=== PATIENT | male | born 1955 | race African-American/Black ===

== ENCOUNTER 2017-06-02 09:41 | Emergency (ER) | payer OTHER ==
[2017-06-02] MEDS ORDERED: RX INFO: IV CONTRAST WAS GIVEN 1 EACH MISC MISCELLANE PRN (10:16)
[2017-06-02] MEDS ORDERED: SODIUM CHLORIDE 0.9% 1,000 ML IV STA (10:16)
[2017-06-02] MEDS ORDERED: ONDANSETRON 4 MG/2 ML VIAL IVP STA (10:16)
[2017-06-02] MEDS ORDERED: HYDROmorphone 1 MG/ML 1 ML SYRINGE IVP STA (10:16)
--- NOTE | 2017-06-02 10:19 | ED ---
Abdominal Pain HPI - General Chief Complaint: Abdominal Pain Stated Complaint: abdominal pain Time Seen by Provider: 06/02/17 10:06 Source: patient, RN notes reviewed, old records reviewed Mode of arrival: ambulatory Limitations: no limitations - History of Present Illness Initial Comments: Physical is a 61-year-old male presenting to the emergency Department chief complaint of 3 days of diffuse abdominal pain. Patient reports the pain seems to be like a "hunger pain". Patient reports that his pain seems to be relieved whenever he eats a small meal but then returns 30 minutes afterward. Patient states that he has a history of a defibrillator, hypertension, enlarged prostate , history of appendectomy. Patient states that he's had no recent fever or chills. Reports he feels nauseated but denies any vomiting. Patient states he also had a couple episodes of diarrhea. Patient states he's had no urinary symptoms or blood in his urine. Patient reports no fever or chills. Patient states the pain seems to radiate around his entire abdomen. It does cause him to be short of breath. He denies any specific chest pain - Related Data Home Medications Medication Instructions Recorded Confirmed Aspirin EC [Ecotrin Low Dose] 81 mg PO DAILY 06/02/17 06/04/17 Atorvastatin Calcium [Lipitor] 10 mg PO HS 06/02/17 06/04/17 Carvedilol [Coreg] 25 mg PO BID@0730,2100 06/02/17 06/04/17 Losartan Potassium 100 mg PO DAILY 06/02/17 06/04/17 Multivitamins, Thera [Multivitamin 1 tab PO DAILY 06/02/17 06/04/17 (formulary)] Previous Rx's Medication Instructions Recorded Omeprazole [PriLOSEC] 40 mg PO DAILY #30 capsule. 06/02/17 Sucralfate [Carafate] 1 gm PO BID #30 tablet 06/02/17 Allergies Allergy/AdvReac Type Severity Reaction Status Date / Time No Known Allergies Allergy Verified 06/03/17 23:35 Review of Systems ROS Statement: Those systems with pertinent positive or pertinent negative responses have been documented in the HPI. ROS Other: All systems not noted in ROS Statement are negative. Past Medical History Past Medical History: Heart Failure History of Any Multi-Drug Resistant Organisms: None Reported Past Surgical History: Appendectomy, Pacemaker Additional Past Surgical History / Comment(s): knee surg Past Psychological History: No Psychological Hx Reported Smoking Status: Never smoker Past Alcohol Use History: None Reported Past Drug Use History: None Reported General Exam - General Exam Comments Initial Comments: Is a 61-year-old male. Patient does to be in some mild discomfort. Limitations: no limitations General appearance: alert, in no apparent distress Head exam: Present: atraumatic, normocephalic, normal inspection Eye exam: Present: normal appearance, PERRL, EOMI. Absent: scleral icterus, conjunctival injection, periorbital swelling ENT exam: Present: normal exam Neck exam: Present: normal inspection. Absent: tenderness, meningismus, lymphadenopathy Respiratory exam: Present: normal lung sounds bilaterally. Absent: respiratory distress, wheezes, rales, rhonchi, stridor Cardiovascular Exam: Present: regular rate, normal rhythm, normal heart sounds. Absent: systolic murmur, diastolic murmur, rubs, gallop, clicks GI/Abdominal exam: Present: soft, tenderness (She is abdominal tenderness.), normal bowel sounds. Absent: distended, guarding, rebound, rigid Extremities exam: Present: normal inspection, full ROM, normal capillary refill. Absent: tenderness, pedal edema, joint swelling, calf tenderness Back exam: Present: normal inspection Neurological exam: Present: alert, oriented X3, CN II-XII intact Psychiatric exam: Present: normal affect, normal mood Skin exam: Present: warm, dry, intact, normal color. Absent: rash Course Vital Signs 06/02/17 06/02/17 06/02/17 09:45 11:39 13:10 Temperature 98.0 F 98.0 F 97.4 F L Pulse Rate 70 62 57 L Respiratory 16 18 18 Rate Blood Pressure 135/82 134/92 131/97 O2 Sat by Pulse 95 95 93 L Oximetry Medical Decision Making - Medical Decision Making Physical is a 61-year-old male presenting to the emergency Department chief complaint of 3 days of diffuse abdominal pain. Patient reports the pain seems to be like a "hunger pain". Patient reports that his pain seems to be relieved whenever he eats a small meal but then returns 30 minutes afterward. Patient states that he has a history of a defibrillator, hypertension, enlarged prostate , history of appendectomy. Patient states that he's had no recent fever or chills. Reports he feels nauseated but denies any vomiting. Patient is given IV fluids, lab work obtained. As noted patient has a low potassium level II.9. This was replaced by 40 mEq by mouth. Discussed this with likely related to a couple of his EKG changes. Patient reports that he doesn't have any chest pain or any other abnormalities. Patient CT abdomen and pelvis was reviewed, negative for any significant acute process.CT had hepatomegaly. Also some small hernias, multiple cysts within the kidney. Discussed the patient's pain seemed to get better whenever he eatsit sound like a duodenal ulcer. Patient was reevaluated and is feeling better at this time. Patient will be discharged with Pepcid, Carafate. Discussed close follow-up with primary care physician in rechecking his potassium level. Patient agrees to treatment plan will comply. Return parameters were discussed. - Lab Data Result diagrams: 06/02/17 10:30 06/02/17 10:30 Lab Results 06/02/17 06/02/17 06/02/17 Range/Units 09:50 10:30 10:30 WBC 7.6 (3.8-10.6) k/uL RBC 4.59 (4.30-5.90) m/uL Hgb 13.5 (13.0-17.5) gm/dL Hct 40.9 (39.0-53.0) % MCV 89.2 (80.0-100.0) fL MCH 29.4 (25.0-35.0) pg MCHC 32.9 (31.0-37.0) g/dL RDW 15.0 (11.5-15.5) % Plt Count 282 (150-450) k/uL Neutrophils % 53 % Lymphocytes % 28 % Monocytes % 11 % Eosinophils % 4 % Basophils % 2 % Neutrophils # 4.0 (1.3-7.7) k/uL Lymphocytes # 2.1 (1.0-4.8) k/uL Monocytes # 0.8 (0-1.0) k/uL Eosinophils # 0.3 (0-0.7) k/uL Basophils # 0.1 (0-0.2) k/uL PT (9.0-12.0) sec INR (<1.2) APTT (22.0-30.0) sec Sodium 141 (137-145) mmol/L Potassium 2.9 L* (3.5-5.1) mmol/L Chloride 100 (98-107) mmol/L Carbon Dioxide 31 H (22-30) mmol/L Anion Gap 10 mmol/L BUN 14 (9-20) mg/dL Creatinine 1.10 (0.66-1.25) mg/dL Est GFR (MDRD) Af Amer >60 (>60 ml/min/1.73 sqM) Est GFR (MDRD) Non-Af >60 (>60 ml/min/1.73 sqM) Glucose 105 H (74-99) mg/dL Calcium 9.5 (8.4-10.2) mg/dL Total Bilirubin 0.7 (0.2-1.3) mg/dL AST 70 H (17-59) U/L ALT 147 H (21-72) U/L Alkaline Phosphatase 77 (38-126) U/L Troponin I (0.000-0.034) ng/mL Total Protein 7.2 (6.3-8.2) g/dL Albumin 4.2 (3.5-5.0) g/dL Amylase 43 (30-110) U/L Lipase 179 (23-300) U/L Urine Color Yellow Urine Appearance Clear (Clear) Urine pH 7.0 (5.0-8.0) Ur Specific [place]ogg[place] 1.007 (1.001-1.035) Urine Protein Negative (Negative) Urine Glucose (UA) Negative (Negative) Urine Ketones Negative (Negative) Urine Blood Negative (Negative) Urine Nitrite Negative (Negative) Urine Bilirubin Negative (Negative) Urine Urobilinogen <2.0 (<2.0) mg/dL Ur Leukocyte Esterase Negative (Negative) 06/02/17 06/02/17 Range/Units 10:30 10:30 WBC (3.8-10.6) k/uL RBC (4.30-5.90) m/uL Hgb (13.0-17.5) gm/dL Hct (39.0-53.0) % MCV (80.0-100.0) fL MCH (25.0-35.0) pg MCHC (31.0-37.0) g/dL RDW (11.5-15.5) % Plt Count (150-450) k/uL Neutrophils % % Lymphocytes % % Monocytes % % Eosinophils % % Basophils % % Neutrophils # (1.3-7.7) k/uL Lymphocytes # (1.0-4.8) k/uL Monocytes # (0-1.0) k/uL Eosinophils # (0-0.7) k/uL Basophils # (0-0.2) k/uL PT 11.0 (9.0-12.0) sec INR 1.1 (<1.2) APTT 26.7 (22.0-30.0) sec Sodium (137-145) mmol/L Potassium (3.5-5.1) mmol/L Chloride (98-107) mmol/L Carbon Dioxide (22-30) mmol/L Anion Gap mmol/L BUN (9-20) mg/dL Creatinine (0.66-1.25) mg/dL Est GFR (MDRD) Af Amer (>60 ml/min/1.73 sqM) Est GFR (MDRD) Non-Af (>60 ml/min/1.73 sqM) Glucose (74-99) mg/dL Calcium (8.4-10.2) mg/dL Total Bilirubin (0.2-1.3) mg/dL AST (17-59) U/L ALT (21-72) U/L Alkaline Phosphatase (38-126) U/L Troponin I 0.017 (0.000-0.034) ng/mL Total Protein (6.3-8.2) g/dL Albumin (3.5-5.0) g/dL Amylase (30-110) U/L Lipase (23-300) U/L Urine Color Urine Appearance (Clear) Urine pH (5.0-8.0) Ur Specific [place] (1.001-1.035) Urine Protein (Negative) Urine Glucose (UA) (Negative) Urine Ketones (Negative) Urine Blood (Negative) Urine Nitrite (Negative) Urine Bilirubin (Negative) Urine Urobilinogen (<2.0) mg/dL Ur Leukocyte Esterase (Negative) 06/02/17 12:48EKG shows normal sinus rhythm. Left ventricular ectopy with QRS widening. Cannot rule out previous inferior infarct. T wave abnormality, consider lateral ischemia. Abnormal EKG. Ventricular rate 63 bpm. OH interval 202 ms. QRS duration 118 ms. QT QTc is 466/476 ms. No evidence of ST elevation. No evidence of a chill or ventricular arrhythmias. - Radiology Data Radiology results: report reviewed CT shows evidence of hepatomegaly. Out of steatosis there may be a small umbilical hernia containing fat. Mainly just a small focus of fluid signal is present likely an additional small hernia. 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 Multiple cortical cysts within the kidneys. Cardiomegaly. Diverticulosis. This is read by Rhett Johnson. Disposition Clinical Impression: Duodenal ulcer, Hypokalemia Disposition: HOME SELF-CARE Condition: Good Instructions: Peptic Ulcer (ED), Hypokalemia (ED) Additional Instructions: Patient denies to follow-up with GI specialist and a primary care provider. Take the medications as prescribed. Return to the emergency department if any alarming signs or symptoms occur. Prescriptions: Omeprazole [PriLOSEC] 40 mg PO DAILY #30 capsule.dr Sucralfate [Carafate] 1 gm PO BID #30 tablet Referrals: Nonstaff,Physician [Primary Care Provider] - 1-2 days Tatyana Jewell MD [STAFF PHYSICIAN] - 1-2 days Stephania Pierce MD [STAFF PHYSICIAN] - 1-2 days Time of Disposition: 12:50
[2017-06-02 10:50] LABS: Basophils # (A) 0.1 k/uL (0-0.2); Basophils % (A) 2 %; CH 30.5; CHCM 34.5; Eosinophils # (A) 0.3 k/uL (0-0.7); Eosinophils % (A) 4 %; HCT 40.9 % (39.0-53.0); HDW 2.73; HGB 13.5 gm/dL (13.0-17.5); Luc # (Auto) 0.22; Luc % (Auto) 3; Lymphocytes # (A) 2.1 k/uL (1.0-4.8); Lymphocytes % (A) 28 %; MCH 29.4 pg (25.0-35.0); MCHC 32.9 g/dL (31.0-37.0); MCV 89.2 fL (80.0-100.0); Mean Platelet Volume 7.8; Monocytes # (A) 0.8 k/uL (0-1.0); Monocytes % (A) 11 %; Neutrophils % (A) 53 %; RBC 4.59 m/uL (4.30-5.90); WBC 7.6 k/uL (3.8-10.6); WBC (Perox) 7.54
[2017-06-02 10:51] LABS: Appearance,Urine Clear (Clear); Bilirubin,Urine Negative (Negative); Glucose,Urine (UA) Negative (Negative); Ketones,Urine Negative (Negative); Leukocyte Esterase,Urine Negative (Negative); Nitrite,Urine Negative (Negative); Protein,Urine Negative (Negative); Specific Gravity,Urine 1.007 (1.001-1.035); UA Billing (MACRO vs. MICRO) CHEM; Urobilinogen,Urine <2.0 mg/dL (<2.0)
[2017-06-02 10:57] LABS: ALT 147 U/L (21-72); AST 70 U/L (17-59); Alkaline Phosphatase 77 U/L (38-126); Amylase 43 U/L (30-110); Anion Gap 10 mmol/L; Blood Urea Nitrogen 14 mg/dL (9-20); Calcium 9.5 mg/dL (8.4-10.2); Carbon Dioxide 31 mmol/L (22-30); Chloride 100 mmol/L (98-107); Glucose 105 mg/dL (74-99); Non-African American GFR(MDRD) >60 (>60 ml/min/1.73 sqM); Sodium 141 mmol/L (137-145); Total Bilirubin 0.7 mg/dL (0.2-1.3); Total Protein 7.2 g/dL (6.3-8.2)
[2017-06-02 10:58] LABS: INR 1.1 (<1.2); Partial Thromboplastin Time 26.7 sec (22.0-30.0)
[2017-06-02 11:03] LABS: Potassium 2.9 mmol/L (3.5-5.1)
[2017-06-02] MEDS ORDERED: POTASSIUM CHLORIDE ER 20 MEQ TAB.ER PO STA (11:08)
[2017-06-02 11:40] VITALS: RESP 18
--- NOTE | 2017-06-02 12:10 | CT ---
EXAMINATION TYPE: CT abdomen pelvis w con DATE OF EXAM: 06/02/2017 COMPARISON: NONE HISTORY: Generalized abdominal pain CT DLP: 1658 mGycm Automated exposure control for dose reduction was used. TECHNIQUE: Helical acquisition of images from the lung bases through the pelvis have been completed. CONTRAST: Performed without Oral Contrast and with IV Contrast, patient injected with 100 mL of Omnipaque 300. FINDINGS: The heart is enlarged. Lead present within the right ventricle. LUNG BASES: No significant abnormality is appreciated. AORTA: No significant abnormality is appreciated. LIVER/GB: Liver shows low attenuation likely due to fatty infiltration, liver is enlarged. Small subc entimeter cystic foci are present anteriorly. Gallbladder is normal. PANCREAS: No significant abnormality is seen. SPLEEN: No significant abnormality is seen. ADRENALS: No significant abnormality is seen. KIDNEYS: Multiple cortical cysts are present bilaterally, the largest at the lower pole of the left k idney measures approximately 9.6 cm. REPRODUCTIVE ORGANS: The prostate is enlarged BOWEL: Wall thickening in the rectosigmoid colon may be due to muscular hypertrophy or lack of disten tion, difficult to exclude a mucosal lesion, there is some minimal diverticular change. Small umbilic al hernia contains fat. Small soft tissue density present immediately adjacent to the umbilical herni a to the right of midline is indeterminate and measures 2 cm. FREE AIR: No Free Air visible. ASCITES: None visible. PELVIC ADENOPATHY: None visualized. RETROPERITONEAL ADENOPATHY: No Retroperitoneal Adenopathy visible. URINARY BLADDER: Inferior impression on the bladder due to the large prostate. OSSEOUS STRUCTURES: Degenerative disc change at L5-S1 with vacuum phenomenon. IMPRESSION: HEPATOMEGALY, HEPATIC STEATOSIS. THERE MAY IS SMALL UMBILICAL HERNIA CONTAINING FAT, IMMEDIATELY EMILIANO CENT A SMALL FOCUS OF FLUID SIGNAL IS PRESENT LIKELY AN ADDITIONAL SMALL HERNIA , THIS COULD BE REPRE SENTATIVE OF SOME LOCAL FAT NECROSIS . MULTIPLE CORTICAL CYSTS WITHIN THE KIDNEYS. CARDIOMEGALY. DIVE RTICULOSIS.
[2017-06-02 13:11] VITALS: BP 131/97; PULSE 57; TEMP 97.4
== END 2017-06-02 13:16 | disposition home or self-care (01) ==
LOC: EC 09:41
DX: K26.9 Duodenal ulcer, unspecified as acute or chronic, without hemorrhage or perforation (principal); E87.6 Hypokalemia; K57.90 Diverticulosis of intestine, part unspecified, without perforation or abscess without bleeding; N28.1 Cyst of kidney, acquired; I51.7 Cardiomegaly; R94.31 Abnormal electrocardiogram [ECG] [EKG]; R16.0 Hepatomegaly, not elsewhere classified; R19.7 Diarrhea, unspecified; R11.0 Nausea; R06.02 Shortness of breath; I11.0 Hypertensive heart disease with heart failure; I50.9 Heart failure, unspecified; Z79.82 Long term (current) use of aspirin; Z79.899 Other long term (current) drug therapy; Z90.49 Acquired absence of other specified parts of digestive tract
CPT/HCPCS: 36415; 93005; 80053; 82150; 83690; 84484; 85025; 85610; 85730; 81003; 74177; 99285; 96374; 96375; 96361 ×3; J2405; J1170; Q9967

== ENCOUNTER 2017-06-03 23:24 | Inpatient (IN) | payer OTHER ==
[2017-06-04] MEDS ORDERED: HYDROmorphone 1 MG/ML 1 ML SYRINGE IVP STA (00:12)
[2017-06-04] MEDS ORDERED: ONDANSETRON 4 MG/2 ML VIAL IVP STA (00:12)
[2017-06-04 00:55] LABS: Basophils # (A) 0.1 k/uL (0-0.2); Basophils % (A) 1 %; CH 30.3; Eosinophils # (A) 0.3 k/uL (0-0.7); Eosinophils % (A) 4 %; HCT 40.4 % (39.0-53.0); HDW 2.72; HGB 13.4 gm/dL (13.0-17.5); Luc # (Auto) 0.22; Luc % (Auto) 4; Lymphocytes # (A) 2.2 k/uL (1.0-4.8); Lymphocytes % (A) 35 %; MCH 29.7 pg (25.0-35.0); MCHC 33.1 g/dL (31.0-37.0); MCV 89.6 fL (80.0-100.0); Mean Platelet Volume 7.9; Monocytes # (A) 0.6 k/uL (0-1.0); Monocytes % (A) 9 %; Neutrophils # (A) 3.1 k/uL (1.3-7.7); Neutrophils % (A) 48 %; RBC 4.51 m/uL (4.30-5.90); WBC 6.4 k/uL (3.8-10.6); WBC (Perox) 6.15
[2017-06-04 01:04] LABS: Appearance,Urine Clear (Clear); Bilirubin,Urine Negative (Negative); Glucose,Urine (UA) Negative (Negative); Ketones,Urine Negative (Negative); Leukocyte Esterase,Urine Negative (Negative); Nitrite,Urine Negative (Negative); Protein,Urine Negative (Negative); Specific Gravity,Urine 1.007 (1.001-1.035); UA Billing (MACRO vs. MICRO) CHEM; Urobilinogen,Urine <2.0 mg/dL (<2.0)
[2017-06-04 01:06] LABS: INR 1.1 (<1.2); Partial Thromboplastin Time 23.9 sec (22.0-30.0); Prothrombin Time 10.6 sec (9.0-12.0)
[2017-06-04 01:13] LABS: ALT 266 U/L (21-72); AST 163 U/L (17-59); Alkaline Phosphatase 111 U/L (38-126); Amylase 49 U/L (30-110); Anion Gap 11 mmol/L; Blood Urea Nitrogen 18 mg/dL (9-20); Calcium 9.9 mg/dL (8.4-10.2); Carbon Dioxide 30 mmol/L (22-30); Chloride 102 mmol/L (98-107); Glucose 102 mg/dL (74-99); Non-African American GFR(MDRD) >60 (>60 ml/min/1.73 sqM); Potassium 3.4 mmol/L (3.5-5.1); Sodium 143 mmol/L (137-145); Total Bilirubin 0.6 mg/dL (0.2-1.3); Total Protein 7.4 g/dL (6.3-8.2)
--- NOTE | 2017-06-04 01:20 | XR ---
CXR 2 View INDICATION: abdominal pain COMPARISON: none FINDINGS: Frontal and lateral views of the chest. Examination is limited due to technique. The cardiomediastinal silhouette is enlarged. Hazy opacification of the bilateral mid to lower lung gomez. Mild deviation of the trachea to the right. There is peribronchial cuffing which may be seen in conditions such as bronchitis or interstitial edema. There is increased vascular markings. There is a suggestion of a small right pleural effusion. Possible opacification of the left lower lung field and right lateral mid to lower lung field. There maybe some atelectasis at the lung bases. No evidence for pleural effusions. There is a pacer device over the left chest with a lead. Questionable ovoid density projecting over the right lateral upper abdomen. Please correlate with clinical history. Correlation to more remote prior exams would be helpful. Lateral views are very limited in evaluation. There is suggestion of mild height loss of the mid to lower thoracic spine. Please correlate with point tenderness. IMPRESSION: Enlarged cardiac silhouette with increased vascular markings and possible small right pleural effusion may be seen in the setting of congestive heart failure. Possible opacification of the left lower lung field and right lateral mid to lower lung field, nonspecific and may be related to airspace disease such as with pulmonary edema although infection is not entirely excluded. Continued followup imaging is recommended.
--- NOTE | 2017-06-04 01:29 | XR ---
ADDENDUM - Added by Alphonse Fournier MD on 06/04/2017 1:30 AM (-07:00) Correction: Two frontal views of the abdomen. KUB INDICATION: abdominal pain COMPARISON: Correlation is made to CT abdomen/pelvis dated 06/02/17 FINDINGS: Two frontal vies of the abdomen. Please refer to the accompanying chest radiograph for chest findings. The cardiac silhouette is enlarged. Increased pulmonary vascular markings. Nonobstructive bowel gas pattern. There is an ovoid opacity projecting over the left upper abdomen, nonspecific. Moderate stool burden in the right abdomen. Degenerative changes at L5/S1. IMPRESSION: Nonobstructive bowel gas pattern. CT abdomen/pelvis is recommended if symptoms persist or worsen. Moderate stool burden in the right abdomen.
[2017-06-04 01:33] LABS: Creatine Kinase MB 1.2 ng/mL (0.0-2.4)
--- NOTE | 2017-06-04 01:34 | ED ---
Abdominal Pain HPI <Zeferino Milligan - Last Filed: 06/04/17 01:58> - General Source: patient Mode of arrival: ambulatory Limitations: no limitations <Pamela Plummer - Last Filed: 06/04/17 04:30> - General Chief Complaint: Abdominal Pain Stated Complaint: Stomach Pain-Revisit Time Seen by Provider: 06/03/17 23:54 - History of Present Illness Initial Comments: 61-year-old male patient presents to emergency department today for complaints of generalized abdominal pain. Patient states been going on for the last 4 days. Patient states that he was seen and evaluated here yesterday and was diagnosed with a possible ulcer and given medication for this. Patient states that he did take the medication as directed however the pain is still present and much worse today than yesterday. Patient states that he feels bloated. Describes the pain as a pressure over his abdomen. Patient states he is having significant shortness of breath whenever he tries to lie down. Patient states that he has also had shortness of breath with any type of activity today. The patient denies any chest pain, cough, congestion, nausea, vomiting, constipation , diarrhea, hematuria, dysuria, urinary urgency, urinary frequency, dark, bloody , or black stools. Patient has past medical history significant for congestive heart failure and implanted cardioverter defibrillator. (Pamela Plummer) - Related Data Home Medications Medication Instructions Recorded Confirmed Aspirin EC [Ecotrin Low Dose] 81 mg PO DAILY 06/02/17 06/02/17 Atorvastatin Calcium [Lipitor] 10 mg PO HS 06/02/17 06/02/17 Carvedilol [Coreg] 25 mg PO BID@0730,2100 06/02/17 06/02/17 Losartan Potassium 100 mg PO DAILY 06/02/17 06/02/17 Multivitamins, Thera [Multivitamin 1 tab PO DAILY 06/02/17 06/02/17 (formulary)] Previous Rx's Medication Instructions Recorded Omeprazole [PriLOSEC] 40 mg PO DAILY #30 capsule. 06/02/17 Sucralfate [Carafate] 1 gm PO BID #30 tablet 06/02/17 Allergies Allergy/AdvReac Type Severity Reaction Status Date / Time No Known Allergies Allergy Verified 06/03/17 23:35 Review of Systems ROS Other: All systems not noted in ROS Statement are negative. <Zeferino Milligan - Last Filed: 06/04/17 01:58> ROS Other: All systems not noted in ROS Statement are negative. <Pamela Plummer - Last Filed: 06/04/17 04:30> ROS Statement: Those systems with pertinent positive or pertinent negative responses have been documented in the HPI. Past Medical History Past Medical History: Heart Failure History of Any Multi-Drug Resistant Organisms: None Reported Past Surgical History: Appendectomy, Pacemaker Additional Past Surgical History / Comment(s): knee surg Past Psychological History: No Psychological Hx Reported Smoking Status: Never smoker Past Alcohol Use History: None Reported Past Drug Use History: None Reported <Pamela Plummer - Last Filed: 06/04/17 04:30> General Exam Limitations: no limitations General appearance: alert, in distress (Mild distress) Eye exam: Present: normal appearance, PERRL, EOMI. Absent: scleral icterus, conjunctival injection, periorbital swelling ENT exam: Present: normal exam, normal oropharynx, mucous membranes moist Neck exam: Present: normal inspection. Absent: tenderness, meningismus, lymphadenopathy Respiratory exam: Present: normal lung sounds bilaterally. Absent: respiratory distress, wheezes, rales, rhonchi, stridor Cardiovascular Exam: Present: regular rate, normal rhythm, normal heart sounds. Absent: systolic murmur, diastolic murmur, rubs, gallop, clicks GI/Abdominal exam: Present: soft, distended, tenderness (Patient reports tenderness and seems uncomfortable palpation of all 4 quadrants), normal bowel sounds. Absent: guarding, rebound, rigid Extremities exam: Present: normal inspection, full ROM, normal capillary refill. Absent: tenderness, pedal edema, joint swelling, calf tenderness Back exam: Present: normal inspection Neurological exam: Present: alert, oriented X3, CN II-XII intact Psychiatric exam: Present: normal affect, normal mood Skin exam: Present: warm, dry, intact, normal color. Absent: rash <Pamela Plummer - Last Filed: 06/04/17 04:30> Course <Zeferino Milligan - Last Filed: 06/04/17 01:58> <Pamela Plummer - Last Filed: 06/04/17 04:30> Vital Signs 06/03/17 06/04/17 06/04/17 23:32 01:32 02:47 Temperature 97.7 F 97.1 F L Pulse Rate 89 58 L Pulse Rate [ 70 Pulse Oximetery ] Respiratory 22 16 16 Rate Blood Pressure 142/102 156/94 Blood Pressure 133/95 [Left Arm] O2 Sat by Pulse 94 L 96 97 Oximetry 06/04/17 03:14 Temperature 98 F Pulse Rate 69 Pulse Rate [ Pulse Oximetery ] Respiratory 16 Rate Blood Pressure 128/80 Blood Pressure [Left Arm] O2 Sat by Pulse Oximetry - Reevaluation(s) Reevaluation #1: 06/04/17 01:58 Patient reevaluated by myself, Dr. Milligan. Patient resting comfortably in bed. Minimal tenderness in the epigastric region on exam. Chest x-ray has some concern for mild heart failure. BNP is slightly elevated. Troponin is slightly elevated. EKG unchanged from yesterday. Patient was updated on results and plan. Case was discussed in detail with Dr. Wilson with [facility] who will admit for hospital call. (Zeferino Milligan) Medical Decision Making - Lab Data Result diagrams: 06/04/17 00:33 06/04/17 00:33 <Zeferino Milligan - Last Filed: 06/04/17 01:58> - Lab Data Result diagrams: 06/04/17 00:33 06/04/17 00:33 - Radiology Data Radiology results: report reviewed, image reviewed <Pamela Plummer - Last Filed: 06/04/17 04:30> - Medical Decision Making 61-year-old male patient presented to emergency department today for complaints of generalized abdominal pain and shortness of breath. Lab work was obtained and did show potassium of 3.4 increased from 2.9 yesterday. AST was 163 increased from 70 yesterday, a LT 266 increased from 147 yesterday, troponin 0.037. Chest x-ray was obtained and did show possible CHF changes, enlarged heart. KUB x-ray was obtained and did show right-sided fecal burden over overall nonobstructive bowel gas pattern. EKG was normal sinus rhythm with chronic changes. Patient will be admitted to the hospital for consults to GI and cardiology. Did speak to Dr. Valdez who instructed to repeat troponin before starting heparin. Also ordered IV Protonix, IV Lasix, and Dilaudid for pain control. (Pamela Plummer - Lab Data Lab Results 06/04/17 06/04/17 06/04/17 Range/Units 00:33 00:33 00:33 WBC 6.4 (3.8-10.6) k/uL RBC 4.51 (4.30-5.90) m/uL Hgb 13.4 (13.0-17.5) gm/dL Hct 40.4 (39.0-53.0) % MCV 89.6 (80.0-100.0) fL MCH 29.7 (25.0-35.0) pg MCHC 33.1 (31.0-37.0) g/dL RDW 15.0 (11.5-15.5) % Plt Count 288 (150-450) k/uL Neutrophils % 48 % Lymphocytes % 35 % Monocytes % 9 % Eosinophils % 4 % Basophils % 1 % Neutrophils # 3.1 (1.3-7.7) k/uL Lymphocytes # 2.2 (1.0-4.8) k/uL Monocytes # 0.6 (0-1.0) k/uL Eosinophils # 0.3 (0-0.7) k/uL Basophils # 0.1 (0-0.2) k/uL PT (9.0-12.0) sec INR (<1.2) APTT (22.0-30.0) sec Sodium 143 (137-145) mmol/L Potassium 3.4 L (3.5-5.1) mmol/L Chloride 102 (98-107) mmol/L Carbon Dioxide 30 (22-30) mmol/L Anion Gap 11 mmol/L BUN 18 (9-20) mg/dL Creatinine 1.20 (0.66-1.25) mg/dL Est GFR (MDRD) Af Amer >60 (>60 ml/min/1.73 sqM) Est GFR (MDRD) Non-Af >60 (>60 ml/min/1.73 sqM) Glucose 102 H (74-99) mg/dL Plasma Lactic Acid Ez (0.7-2.0) mmol/L Calcium 9.9 (8.4-10.2) mg/dL Total Bilirubin 0.6 (0.2-1.3) mg/dL AST 163 H (17-59) U/L ALT 266 H (21-72) U/L Alkaline Phosphatase 111 (38-126) U/L Total Creatine Kinase 184 H (55-170) U/L CK-MB (CK-2) 1.2 (0.0-2.4) ng/mL CK-MB (CK-2) Rel Index 0.7 Troponin I 0.037 H* (0.000-0.034) ng/mL NT-Pro-B Natriuret Pep pg/mL Total Protein 7.4 (6.3-8.2) g/dL Albumin 4.4 (3.5-5.0) g/dL Amylase 49 (30-110) U/L Lipase 229 (23-300) U/L Urine Color Urine Appearance (Clear) Urine pH (5.0-8.0) Ur Specific [place] (1.001-1.035) Urine Protein (Negative) Urine Glucose (UA) (Negative) Urine Ketones (Negative) Urine Blood (Negative) Urine Nitrite (Negative) Urine Bilirubin (Negative) Urine Urobilinogen (<2.0) mg/dL Ur Leukocyte Esterase (Negative) 06/04/17 06/04/17 06/04/17 Range/Units 00:33 00:33 00:33 WBC (3.8-10.6) k/uL RBC (4.30-5.90) m/uL Hgb (13.0-17.5) gm/dL Hct (39.0-53.0) % MCV (80.0-100.0) fL MCH (25.0-35.0) pg MCHC (31.0-37.0) g/dL RDW (11.5-15.5) % Plt Count (150-450) k/uL Neutrophils % % Lymphocytes % % Monocytes % % Eosinophils % % Basophils % % Neutrophils # (1.3-7.7) k/uL Lymphocytes # (1.0-4.8) k/uL Monocytes # (0-1.0) k/uL Eosinophils # (0-0.7) k/uL Basophils # (0-0.2) k/uL PT 10.6 (9.0-12.0) sec INR 1.1 (<1.2) APTT 23.9 (22.0-30.0) sec Sodium (137-145) mmol/L Potassium (3.5-5.1) mmol/L Chloride (98-107) mmol/L Carbon Dioxide (22-30) mmol/L Anion Gap mmol/L BUN (9-20) mg/dL Creatinine (0.66-1.25) mg/dL Est GFR (MDRD) Af Amer (>60 ml/min/1.73 sqM) Est GFR (MDRD) Non-Af (>60 ml/min/1.73 sqM) Glucose (74-99) mg/dL Plasma Lactic Acid Ez 1.6 (0.7-2.0) mmol/L Calcium (8.4-10.2) mg/dL Total Bilirubin (0.2-1.3) mg/dL AST (17-59) U/L ALT (21-72) U/L Alkaline Phosphatase (38-126) U/L Total Creatine Kinase (55-170) U/L CK-MB (CK-2) (0.0-2.4) ng/mL CK-MB (CK-2) Rel Index Troponin I (0.000-0.034) ng/mL NT-Pro-B Natriuret Pep pg/mL Total Protein (6.3-8.2) g/dL Albumin (3.5-5.0) g/dL Amylase (30-110) U/L Lipase (23-300) U/L Urine Color Light Yellow Urine Appearance Clear (Clear) Urine pH 8.0 (5.0-8.0) Ur Specific [place] 1.007 (1.001-1.035) Urine Protein Negative (Negative) Urine Glucose (UA) Negative (Negative) Urine Ketones Negative (Negative) Urine Blood Negative (Negative) Urine Nitrite Negative (Negative) Urine Bilirubin Negative (Negative) Urine Urobilinogen <2.0 (<2.0) mg/dL Ur Leukocyte Esterase Negative (Negative) 06/04/17 Range/Units 00:33 WBC (3.8-10.6) k/uL RBC (4.30-5.90) m/uL Hgb (13.0-17.5) gm/dL Hct (39.0-53.0) % MCV (80.0-100.0) fL MCH (25.0-35.0) pg MCHC (31.0-37.0) g/dL RDW (11.5-15.5) % Plt Count (150-450) k/uL Neutrophils % % Lymphocytes % % Monocytes % % Eosinophils % % Basophils % % Neutrophils # (1.3-7.7) k/uL Lymphocytes # (1.0-4.8) k/uL Monocytes # (0-1.0) k/uL Eosinophils # (0-0.7) k/uL Basophils # (0-0.2) k/uL PT (9.0-12.0) sec INR (<1.2) APTT (22.0-30.0) sec Sodium (137-145) mmol/L Potassium (3.5-5.1) mmol/L Chloride (98-107) mmol/L Carbon Dioxide (22-30) mmol/L Anion Gap mmol/L BUN (9-20) mg/dL Creatinine (0.66-1.25) mg/dL Est GFR (MDRD) Af Amer (>60 ml/min/1.73 sqM) Est GFR (MDRD) Non-Af (>60 ml/min/1.73 sqM) Glucose (74-99) mg/dL Plasma Lactic Acid Ez (0.7-2.0) mmol/L Calcium (8.4-10.2) mg/dL Total Bilirubin (0.2-1.3) mg/dL AST (17-59) U/L ALT (21-72) U/L Alkaline Phosphatase (38-126) U/L Total Creatine Kinase (55-170) U/L CK-MB (CK-2) (0.0-2.4) ng/mL CK-MB (CK-2) Rel Index Troponin I (0.000-0.034) ng/mL NT-Pro-B Natriuret Pep 2940 pg/mL Total Protein (6.3-8.2) g/dL Albumin (3.5-5.0) g/dL Amylase (30-110) U/L Lipase (23-300) U/L Urine Color Urine Appearance (Clear) Urine pH (5.0-8.0) Ur Specific [place] (1.001-1.035) Urine Protein (Negative) Urine Glucose (UA) (Negative) Urine Ketones (Negative) Urine Blood (Negative) Urine Nitrite (Negative) Urine Bilirubin (Negative) Urine Urobilinogen (<2.0) mg/dL Ur Leukocyte Esterase (Negative) 06/04/17 04:22 EKG obtained 00 19 reveals sinus rhythm with premature atrial complexes with aberrant conduction, possible left atrial enlargement, left ventricular hypertrophy with QRS widening, ST and T-wave abnormality. Ventricular rate is 83, MD interval 208, QR spiritism 120, QT 426, QTc 500. No evidence of acute ST elevation or depression. (Pamela Plummer) - Radiology Data Two-view x-ray of the chest shows the cardiomediastinal Vale is enlarged. Hazy opacification of the bilateral mid to lower lung gomez. Mild deviation of trachea to the right. There is peribronchial cuffing which may be seen in condition such as bronchitis or interstitial edema. There is increased vascular markings. There is a suggestion of a small right pleural effusion. Possible opacification of the left lower lung field and right lateral mid to lower lung field. There is some atelectasis at the lung bases. No evidence for pleural effusions. There is a pacer device over the left chest with a lead. Questionable ovoid density projecting over the right lateral upper abdomen. Please correlate with clinical history. Correlation to more remote prior exams of be helpful. Lateral views are looked very limited evaluation. There is suggestion of mild height loss of the mid to lower thoracic spine. Please correlate with point tenderness. Impression by Dr. Fournier shows enlarged cardiac silhouette with increased vascular markings and possible small right pleural effusion may be seated in the setting of congestive heart failure. Possible opacification of the left lower lung field in the right mid to lower lung field, nonspecific and may be related to airspace disease such as with pulmonary edema although infection is not entirely excluded. 2 frontal views of the abdomen obtained, nonobstructive bowel gas pattern. There is an ovoid opacity projecting over the left upper abdomen, is nonspecific. Moderate stool burden in the right abdomen. Degenerative changes L5-S1. Impression by Dr. Fournier shows nonobstructive bowel gas pattern. CT abdomen and pelvis is recommended if symptoms persist or worsen. Moderate stool burden in the right abdomen. (Pamela Plummer) Disposition <Zeferino Milligan - Last Filed: 06/04/17 01:58> Decision to Admit Reason: Admit from EC Decision Date: 06/04/17 Decision Time: 02:24 <Pamela Plummer - Last Filed: 06/04/17 04:30> Clinical Impression: Elevated troponin, Abdominal pain, Acute exacerbation of CHF (congestive heart failure), Elevated liver enzymes Disposition: ADMITTED IP TO THIS HOSP Condition: Fair
[2017-06-04 01:51] LABS: Troponin I 0.037 ng/mL (0.000-0.034)
[2017-06-04] MEDS ORDERED: HEPARIN SODIUM,PORCINE 5,000 UNIT/ML 1 ML VIAL IV ONE (02:01)
[2017-06-04] MEDS ORDERED: NITROGLYCERIN SL TABS 0.4 MG TAB SUBLINGUAL PRN (02:01)
[2017-06-04] MEDS ORDERED: HEPARIN SODIUM,PORCINE/D5W PMX 25,000 UNIT in DEXTROSE/WATER 1 500ML.BAG IV SCH (02:15)
[2017-06-04] MEDS ORDERED: FUROSEMIDE 10 MG/ML 4 ML VIAL IV STA (02:21)
[2017-06-04] MEDS ORDERED: ONDANSETRON 4 MG/2 ML VIAL IVP PRN (02:21)
[2017-06-04] MEDS ORDERED: PANTOPRAZOLE 40 MG/10 ML VIAL IVP ONE (02:21)
[2017-06-04 03:04] LABS: Troponin I 0.031 ng/mL (0.000-0.034)
--- NOTE | 2017-06-04 06:47 | P.HPIM ---
History of Present Illness H&P Date: 06/04/17 Chief Complaint: Abdominal pain The patient is pleasant 61 years old -[place] male significant history of coronary artery disease status post inferior AICD device placement presented to emergency room with abdominal pain across his midabdomen sharp he rates it at 6 weeks -10 . For the past week, pain actually improves after food, no similar pain before, he came to the emergency room on the for the same pain , no apparent injury or falls. Review of Systems Constitutional: Patient reports no fever, no chills, no weight changes, no change in appetite Eyes: Patient reports no double vision, no visual changes ENT: Patient reports no rhinorrhea, no post nasal drip, no sore throat Cardiovascular: Patient reports no chest, pain no edema, no palpitations, no syncope, no orthopnea, no paroxysmal nocturnal dyspnea. Respiratory: Patient reports no dyspnea, no cough, no wheeze Gastrointestinal: Patient reports no nausea, no vomiting, no constipation, no diarrhea Genitourinary: Patient reports no dysuria, no urinary frequency, no hematuria. Musculoskeletal: Patient reports no unusual joint pain, no joint swelling or weakness. Patient reports no muscular pain. Psychiatric: Patient reports no changes in mood, no sleeping problems. Patient reports no changes in memory. Endocrine: Patient reports no thirst, no polyuria, no cold intolerance, no heat intolerance. Neurological: Patient reports no unusual paresthesias, no seizures, no paresis , no paralysis, no facila droop, no headache. Heme/Lymphatic: Patient reports no easy bruising, no bleeding tendency, no lymphadenopathy. Allergic/ Immunologic: Patient reports no recent allergic reactions or immunologic history. Skin: Patient reports no rashes or unusual lesions. Past Medical History Past Medical History: Heart Failure Additional Past Medical History / Comment(s): torn ACL-right knee 2006. CAD History of Any Multi-Drug Resistant Organisms: None Reported Past Surgical History: Appendectomy, Pacemaker Additional Past Surgical History / Comment(s): knee surg Past Anesthesia/Blood Transfusion Reactions: No Reported Reaction Type of Cardiac Device: Permanent Pacemaker, AICD Device Placement Date:: March 2016 Past Psychological History: No Psychological Hx Reported Smoking Status: Never smoker Past Alcohol Use History: None Reported Past Drug Use History: None Reported Medications and Allergies Home Medications Medication Instructions Recorded Confirmed Type Aspirin EC [Ecotrin Low Dose] 81 mg PO DAILY 06/02/17 06/02/17 History Atorvastatin Calcium [Lipitor] 10 mg PO HS 06/02/17 06/02/17 History Carvedilol [Coreg] 25 mg PO BID@0730,2100 06/02/17 06/02/17 History Losartan Potassium 100 mg PO DAILY 06/02/17 06/02/17 History Multivitamins, Thera [Multivitamin 1 tab PO DAILY 06/02/17 06/02/17 History (formulary)] Allergies Allergy/AdvReac Type Severity Reaction Status Date / Time No Known Allergies Allergy Verified 06/03/17 23:35 Physical Exam Vitals: Vital Signs Temp Pulse Pulse Resp BP BP Pulse Ox 06/04/17 04:00 70 16 06/04/17 03:14 98 F 69 16 128/80 06/04/17 02:47 97.1 F L 70 16 133/95 97 06/04/17 01:32 58 L 16 156/94 96 06/03/17 23:32 97.7 F 89 22 142/102 94 L Intake and Output 06/03/17 06/03/17 06/04/17 14:59 22:59 06:59 Other: Voiding Method Toilet Weight 110.8 kg Patient Weight 06/04/17 06:59 Weight 110.8 kg - Constitutional General appearance: cooperative, disheveled, severe distress - EENT Eyes: abnormal pupil, PERRLA, fundus normal, no photophobia, no ptosis ENT: no tonsillar exudates Ears: bilateral: normal - Neck Carotids: negative: upstroke bounding Thyroid: bilateral: normal size - Respiratory Respiratory: bilateral: diminished, dullness, rales, rhonchi, negative: CTA, wheezing, prolonged expiration, prolonged inspiration, other - Cardiovascular Rhythm: regular Heart sounds: normal: S1, S2 Abnormal Heart Sounds: S3 Gallop - Gastrointestinal SOME EDEMA General gastrointestinal: distended, normal bowel sounds, no rigid, soft, no tenderness - Integumentary Integumentary: no flushed, normal, no pale, no rash - Neurologic Neurologic: CNII-XII intact, focal deficits - Musculoskeletal Musculoskeletal: gait normal, generalized weakness - Psychiatric Psychiatric: A&O x's 3, appropriate affect Results CBC & Chem 7: 06/04/17 00:33 06/04/17 00:33 Labs: Abnormal Lab Results - Last 24 Hours (Table) 06/04/17 06/04/17 Range/Units 00:33 00:33 Potassium 3.4 L (3.5-5.1) mmol/L Glucose 102 H (74-99) mg/dL AST 163 H (17-59) U/L ALT 266 H (21-72) U/L Total Creatine Kinase 184 H (55-170) U/L Troponin I 0.037 H* (0.000-0.034) ng/mL CT Scan - head: report reviewed Thrombosis Risk Factor Assmnt - Choose All That Apply Other Risk Factors: No Other congenital or acquired thrombophilia - If yes, enter type in comment: No Assessment and Plan (1) Abdominal pain Narrative/Plan: I will place him nothing by mouth, I will start Protonix 80 mg now and then 40 mg daily, GI consultation, pain control with Dilaudid Status: Acute (2) Acute exacerbation of CHF (congestive heart failure) Narrative/Plan: Patient with known carotid artery disease status post AICD we'll continue to monitor EKG, I'll start him on Lasix 40 mg Continue his current Cozaar and carvedilol and hold on aspirin and continue statin and an echocardiogram and consider cardiology consultation, I will correct his electrolytes and replace as needed Status: Acute (3) Elevated liver enzymes Narrative/Plan: Likely backflow from the heart failure Status: Acute (4) Elevated troponin Narrative/Plan: Likely demand ischemia but the patient has coronary artery disease and is dismissed to be monitored and repeated placing him on telemetry and obtaining cardiology consultation Status: Acute (5) Hypokalemia Narrative/Plan: I will replace his potassium Status: Acute
[2017-06-04] MEDS: HYDROmorphone 1 MG/ML 1 ML SYRINGE IVP PRN ×3 (07:44→21:09)
[2017-06-04 09:14] LABS: Glucose,Whole Blood 98 mg/dL (75-99)
--- NOTE | 2017-06-04 09:35 | P.CONS ---
History of Present Illness - Reason for Consult Consult date: 06/04/17 elevated liver enzymes Requesting physician: Seymour Valdez - History of Present Illness 61-year-old gentleman with a past medical history of congestive heart failure, [place], AICD presents with acute abdominal pain 5 days without fever. Pain is generalized across the entire abdomen and described as "it feels like I ate too much with bloatedness". Denies diarrhea, constipation, hematemesis, hematochezia, melena. Minimal nausea. No emesis. Consultation requested for elevated liver enzymes. Evaluated in the ER on 06/02/2017. CT abdomen and pelvis without oral contrast reported the pedal megaly, hepatic steatosis. Diverticulosis. Total bilirubin 0.6-0.7. AST 70-163. ALT 147-266. Alkaline phosphatase 77- 111. Lipase 179-to 29. Amylase 43-49. White count 6.4-7.6. Hemoglobin 13.4- 13.5. Platelet 282-288. INR 1.1. BUN 14-18. Creatinine 1.1. Plasma lactic acid venous 1.6. No history of liver problems or hepatitis. No history of alcohol or intravenous drug abuse. No changes in medications. No history of peptic ulcer disease. No history of EGD. Review of Systems Constitutional: Denies fever, chills, sweats, weight gain, or loss. HEENT: Negative for migraines, blurred vision or loss, earaches, drainage, tinnitus, oral mucosal lesions, dysphagia, or odynophagia. Cardiac: CHF. IN. AICD. Negative for chest pain, arrhythmias, or palpitation. Respiratory: Negative for shortness of breath, hemoptysis, cough, or sputum production. Gastrointestinal: See HPI for pertinent findings. Genitourinary: Negative for hematuria, urgency, frequency, polyuria, dysuria, or penile discharge. Musculoskeletal: Negative for muscle aches, swelling, arthritis, and arthralgias. Neurologic: Negative for stroke or TIA. Endocrine: Negative for thyroid problems. Skin: Negative for rash or itching. Psychiatric: Negative history for depression and anxiety All systems: negative (See HPI) Past Medical History Past Medical History: Heart Failure Additional Past Medical History / Comment(s): torn ACL-right knee 2006. CAD History of Any Multi-Drug Resistant Organisms: None Reported Past Surgical History: Appendectomy, Pacemaker Additional Past Surgical History / Comment(s): knee surg Past Anesthesia/Blood Transfusion Reactions: No Reported Reaction Type of Cardiac Device: Permanent Pacemaker, AICD Device Placement Date:: March 2016 Past Psychological History: No Psychological Hx Reported Smoking Status: Never smoker Past Alcohol Use History: None Reported Past Drug Use History: None Reported Medications and Allergies Home Medications Medication Instructions Recorded Confirmed Type Aspirin EC [Ecotrin Low Dose] 81 mg PO DAILY 06/02/17 06/04/17 History Atorvastatin Calcium [Lipitor] 10 mg PO HS 06/02/17 06/04/17 History Carvedilol [Coreg] 25 mg PO BID@0730,2100 06/02/17 06/04/17 History Losartan Potassium 100 mg PO DAILY 06/02/17 06/04/17 History Multivitamins, Thera [Multivitamin 1 tab PO DAILY 06/02/17 06/04/17 History (formulary)] Allergies Allergy/AdvReac Type Severity Reaction Status Date / Time No Known Allergies Allergy Verified 06/03/17 23:35 Physical Exam Vitals: Vital Signs Temp Pulse Pulse Resp BP BP Pulse Ox 06/04/17 04:00 70 16 06/04/17 03:14 98 F 69 16 128/80 06/04/17 02:47 97.1 F L 70 16 133/95 97 06/04/17 01:32 58 L 16 156/94 96 06/03/17 23:32 97.7 F 89 22 142/102 94 L Intake and Output 06/03/17 06/04/17 06/04/17 22:59 06:59 14:59 Other: Voiding Method Toilet # Voids 1 Weight 110.8 kg General appearance: The patient is alert, oriented, in no acute distress. Somewhat drowsy secondary to recent pain medication administration. HET: Head is normocephalic and atraumatic. Pupils are equal and reactive. Oropharynx is clear without lesions. Neck: Supple without lymphadenopathy. Trachea midline. Heart: S1 S2. Regular rate and rhythm. Lungs: No crackles or wheezes are heard. Abdomen: Soft, diffuse mild tenderness across mid abdomen, nondistended with bowel sounds. No peritoneal signs. No palpable organomegaly or masses. Extremities: Normal skin color and turgor. No cyanosis, rash, ulceration, clubbing, or edema. Radial and pedal pulses are 2/4 bilaterally. Neurological: No focal deficits. Strength and sensation are grossly intact. Results CBC & Chem 7: 06/04/17 00:33 06/04/17 00:33 Labs: Abnormal Lab Results - Last 24 Hours (Table) 06/04/17 06/04/17 Range/Units 00:33 00:33 Potassium 3.4 L (3.5-5.1) mmol/L Glucose 102 H (74-99) mg/dL AST 163 H (17-59) U/L ALT 266 H (21-72) U/L Total Creatine Kinase 184 H (55-170) U/L Troponin I 0.037 H* (0.000-0.034) ng/mL CT scan - abdomen: report reviewed (Dr. Pierce) Assessment and Plan (1) Transaminitis Narrative/Plan: Etiology unclear possible passive venous congestion with history of CHF possible nonalcoholic steatohepatitis possible gallbladder pathology. Status: Acute (2) Abdominal pain Status: Acute (3) Nonalcoholic hepatosteatosis Status: Chronic (4) Hepatomegaly Status: Chronic (5) CHF (congestive heart failure) Narrative/Plan: History of CHF Status: Chronic Plan: 1. Hepatitis panel. 2. Ultrasound abdomen rule out gallbladder pathology. 3. Protonix 40 mg IV daily. 4. EGD contingent on clinical course for evaluation of abdominal pain. Thank you for this kind referral and the opportunity to participate in the care of your patient. This consultation was discussed with Dr. Pierce. The impression and plan of care have been directed as dictated.
[2017-06-04 10:19] LABS: Creatine Kinase MB 1.2 ng/mL (0.0-2.4); Troponin I 0.025 ng/mL (0.000-0.034)
--- NOTE | 2017-06-04 11:53 | US ---
EXAMINATION TYPE: US abdomen limited DATE OF EXAM: 06/04/2017 COMPARISON: NONE CLINICAL HISTORY: elevated liver enzymes. EXAM MEASUREMENTS: Liver Length: 17.0 cm Gallbladder Wall: 0.3 cm CBD: 0.4 cm Right Kidney: 12.4 x 5.7 x 6.9 cm Pancreas: Obscured by bowel gas Liver: Increased attenuation; small cysts seen peripherally 0.9 x 0.7 x 1.1 cm upper margin right lobe and 1.9 x 1.2 x1.6 cm cyst left lobe. Solid hypoechoic lesion mid right lobe measuring 3.1 x 3. 1 cm, Gallbladder: wnl Evidence for sonographic Balir's sign: yes CBD: wnl Right Kidney: 3 cysts seen, upper and lower pole; 2.7 x 2.9 x 3.3 cm, 3.2 x 2.1 x 4.0 cm and 2.8 x 3.1 x 3.2 cm respectively IMPRESSION: 1. Suspicious solid hepatic lesion within segment 8 measuring 3.1 x 3.1 cm superimposed upon a backgr ound of hepatic steatosis. Dynamic enhanced abdominal MRI is recommended for further characterization . 2. Benign appearing hepatic and renal cysts.
--- NOTE | 2017-06-04 12:25 | P.CRDCN ---
History of Present Illness History of present illness: Patient interviewed and examined. Mild hepatojugular reflux no lower extremity edema heart sounds are normal liver enzymes are abnormal he has severe nonischemic current myopathy and is followed at [facility] appropriate medicated I would suggest workup for abnormal liver functions unless they're chronically elevated one may consider holding atorvastatin 10 mg daily although I doubt that this is the reason. One may also consider adding spironolactone if he has not had any hyper kalemia issues in the past. Outpatient follow-up with his cardio just electrophysiology Please see nurse practitioner's full dictation Past Medical History Past Medical History: Heart Failure Additional Past Medical History / Comment(s): torn ACL-right knee 2006. CAD History of Any Multi-Drug Resistant Organisms: None Reported Past Surgical History: Appendectomy, Pacemaker Additional Past Surgical History / Comment(s): knee surg Past Anesthesia/Blood Transfusion Reactions: No Reported Reaction Type of Cardiac Device: Permanent Pacemaker, AICD Device Placement Date:: March 2016 Past Psychological History: No Psychological Hx Reported Smoking Status: Never smoker Past Alcohol Use History: None Reported Past Drug Use History: None Reported Medications and Allergies Home Medications Medication Instructions Recorded Confirmed Type Aspirin EC [Ecotrin Low Dose] 81 mg PO DAILY 06/02/17 06/04/17 History Atorvastatin Calcium [Lipitor] 10 mg PO HS 06/02/17 06/04/17 History Carvedilol [Coreg] 25 mg PO BID@0730,2100 06/02/17 06/04/17 History Losartan Potassium 100 mg PO DAILY 06/02/17 06/04/17 History Multivitamins, Thera [Multivitamin 1 tab PO DAILY 06/02/17 06/04/17 History (formulary)] Allergies Allergy/AdvReac Type Severity Reaction Status Date / Time No Known Allergies Allergy Verified 06/03/17 23:35 Physical Exam Vitals: Vital Signs Temp Pulse Pulse Resp BP BP Pulse Ox 06/04/17 11:52 96.8 F L 71 20 135/90 95 06/04/17 08:00 97.7 F 103 H 20 124/81 93 L 06/04/17 04:00 70 16 06/04/17 03:14 98 F 69 16 128/80 06/04/17 02:47 97.1 F L 70 16 133/95 97 06/04/17 01:32 58 L 16 156/94 96 06/03/17 23:32 97.7 F 89 22 142/102 94 L Intake and Output 06/03/17 06/04/17 06/04/17 22:59 06:59 14:59 Other: Voiding Method Toilet # Voids 1 Weight 110.8 kg Results 06/04/17 00:33 06/04/17 00:33 Cardiac Enzymes 06/04/17 06/04/17 06/04/17 Range/Units 00:33 00:33 02:30 AST 163 H (17-59) U/L CK-MB (CK-2) 1.2 1.0 (0.0-2.4) ng/mL Troponin I 0.037 H* 0.031 (0.000-0.034) ng/mL 06/04/17 Range/Units 09:04 AST (17-59) U/L CK-MB (CK-2) 1.2 (0.0-2.4) ng/mL Troponin I 0.025 (0.000-0.034) ng/mL Coagulation 06/04/17 Range/Units 00:33 PT 10.6 (9.0-12.0) sec APTT 23.9 (22.0-30.0) sec CBC 06/04/17 Range/Units 00:33 WBC 6.4 (3.8-10.6) k/uL RBC 4.51 (4.30-5.90) m/uL Hgb 13.4 (13.0-17.5) gm/dL Hct 40.4 (39.0-53.0) % Plt Count 288 (150-450) k/uL Comprehensive Metabolic Panel 06/04/17 Range/Units 00:33 Sodium 143 (137-145) mmol/L Potassium 3.4 L (3.5-5.1) mmol/L Chloride 102 (98-107) mmol/L Carbon Dioxide 30 (22-30) mmol/L BUN 18 (9-20) mg/dL Creatinine 1.20 (0.66-1.25) mg/dL Glucose 102 H (74-99) mg/dL Calcium 9.9 (8.4-10.2) mg/dL AST 163 H (17-59) U/L ALT 266 H (21-72) U/L Alkaline Phosphatase 111 (38-126) U/L Total Protein 7.4 (6.3-8.2) g/dL Albumin 4.4 (3.5-5.0) g/dL Current Medications Generic Name Dose Route Start Last Admin Trade Name Freq PRN Reason Stop Dose Admin Atorvastatin Calcium 10 mg 06/04/17 21:00 Lipitor PO HS JASON Carvedilol 25 mg 06/04/17 21:00 Coreg PO BID@0730,2100 [facility] Furosemide 40 mg 06/04/17 10:15 Lasix IV Q12HR [facility] Hydromorphone HCl 1 mg 06/04/17 02:21 06/04/17 07:44 Dilaudid IVP 1 mg Q3H PRN Administration Pain Losartan Potassium 100 mg 06/04/17 09:00 Cozaar PO DAILY [facility] Nitroglycerin 0.4 mg 06/04/17 02:01 Nitrostat SUBLINGUAL Q5M PRN Chest Pain Ondansetron HCl 4 mg 06/04/17 02:21 Zofran IVP Q6HR PRN Nausea And Vomiting Pantoprazole Sodium 40 mg 06/04/17 21:00 Protonix IVP BID [facility] Intake and Output 06/03/17 06/04/17 06/04/17 22:59 06:59 14:59 Other: Voiding Method Toilet # Voids 1 Weight 110.8 kg 06/04/17 00:33 06/04/17 00:33
[2017-06-04 12:39] LABS: Hepatitis B Surface Ag Index 0.05
[2017-06-04 12:45] LABS: Hepatitis B Core IgM Index 0.01
[2017-06-04 12:57] LABS: Hepatitis C Virus IgG Ab Negative (Negative); Hepatitis C Virus IgG Index 0.03
[2017-06-04 13:32] VITALS: BMI 35.0
[2017-06-04] MEDS: LOSARTAN 50 MG TAB PO SCH (13:40)
[2017-06-04] MEDS: FUROSEMIDE 10 MG/ML 4 ML VIAL IV SCH ×2 (13:40→21:10)
--- NOTE | 2017-06-04 14:00 | P.CRDCN ---
History of Present Illness Consult date: 06/04/17 Reason for Consult (text): CHF Exacerbation Chief complaint: abdominal pain History of present illness: This is a pleasant 61-year-old -Cong[place]ese gentleman with a history of coronary artery disease with mild-intermediate proximal LAD and intermediate distal RCA disease, nonischemic cardiomyopathy, severe stenosis systolic and diastolic heart failure with an ejection fraction 25%, status post ICD, obstructive sleep apnea, pulmonary hypertension, obesity. Follows with a tank washer out of [place]. He presented to the emergency department twice this week with complaints of abdominal discomfort and distention. Was apparently seen in the emergency department a few days back and was given omeprazole without relief, abdominal pain actually worsened. He presented again last night complains of abdominal discomfort as well as shortness of breath with activity and orthopnea and was admitted with CHF exacerbation, abdominal pain and distention. EKG and admission shows sinus rhythm with diffuse ST-T wave abnormalities and PVCs, similar to EKG obtained from patient' s primary tank washer office. Originally values showed a potassium of 3.4 which has been supplemented, BNP 2940, troponin 0.037, 0.031 and 0.025 and a BUN of 18 with creatinine 1.2. ALT and AST are both elevated, GIs and consult. Upon examination, patient is quite drowsy as he did not sleep well last night and has been receiving pain medications. Most the HPI was obtained from his . He does not appear to be in any acute distress. Past Medical History Past Medical History: Heart Failure Additional Past Medical History / Comment(s): torn ACL-right knee 2006. CAD History of Any Multi-Drug Resistant Organisms: None Reported Past Surgical History: Appendectomy, Pacemaker Additional Past Surgical History / Comment(s): knee surg Past Anesthesia/Blood Transfusion Reactions: No Reported Reaction Type of Cardiac Device: Permanent Pacemaker, AICD Device Placement Date:: March 2016 Past Psychological History: No Psychological Hx Reported Smoking Status: Never smoker Past Alcohol Use History: None Reported Past Drug Use History: None Reported Medications and Allergies Home Medications Medication Instructions Recorded Confirmed Type Aspirin EC [Ecotrin Low Dose] 81 mg PO DAILY 06/02/17 06/04/17 History Atorvastatin Calcium [Lipitor] 10 mg PO HS 06/02/17 06/04/17 History Carvedilol [Coreg] 25 mg PO BID@0730,2100 06/02/17 06/04/17 History Losartan Potassium 100 mg PO DAILY 06/02/17 06/04/17 History Multivitamins, Thera [Multivitamin 1 tab PO DAILY 06/02/17 06/04/17 History (formulary)] Allergies Allergy/AdvReac Type Severity Reaction Status Date / Time No Known Allergies Allergy Verified 06/03/17 23:35 Physical Exam Vitals: Vital Signs Temp Pulse Pulse Resp BP BP Pulse Ox 06/04/17 11:52 96.8 F L 71 20 135/90 95 06/04/17 08:00 97.7 F 103 H 20 124/81 93 L 06/04/17 04:00 70 16 06/04/17 03:14 98 F 69 16 128/80 06/04/17 02:47 97.1 F L 70 16 133/95 97 06/04/17 01:32 58 L 16 156/94 96 06/03/17 23:32 97.7 F 89 22 142/102 94 L Intake and Output 06/03/17 06/04/17 06/04/17 22:59 06:59 14:59 Intake Total 200 Balance 200 Intake: Oral 200 Other: Voiding Method Toilet # Voids 1 Weight 110.8 kg 110.8 kg Patient Weight 06/05/17 06:59 Weight 110.8 kg PHYSICAL EXAMINATION: HEENT: Head is atraumatic, normocephalic. Pupils equal, round. Neck is supple. Mild hepatojugular reflux. HEART EXAMINATION: Heart sounds regular, S1 and S2 normal. No murmur or gallop heard. CHEST EXAMINATION: Lungs are clear to auscultation and precussion. No chest wall tenderness is noted on palpation or with deep breathing. ABDOMEN: Soft, distended, nontender. Bowel sounds are heard. No organomegaly noted. EXTREMITIES: 2+ peripheral pulses with no evidence of peripheral edema and no calf tenderness noted. NEUROLOGIC patient is awake, alert and oriented x3. . Results 06/04/17 00:33 06/04/17 00:33 Cardiac Enzymes 06/04/17 06/04/17 06/04/17 Range/Units 00:33 00:33 02:30 AST 163 H (17-59) U/L CK-MB (CK-2) 1.2 1.0 (0.0-2.4) ng/mL Troponin I 0.037 H* 0.031 (0.000-0.034) ng/mL 06/04/17 Range/Units 09:04 AST (17-59) U/L CK-MB (CK-2) 1.2 (0.0-2.4) ng/mL Troponin I 0.025 (0.000-0.034) ng/mL Coagulation 06/04/17 Range/Units 00:33 PT 10.6 (9.0-12.0) sec APTT 23.9 (22.0-30.0) sec CBC 06/04/17 Range/Units 00:33 WBC 6.4 (3.8-10.6) k/uL RBC 4.51 (4.30-5.90) m/uL Hgb 13.4 (13.0-17.5) gm/dL Hct 40.4 (39.0-53.0) % Plt Count 288 (150-450) k/uL Comprehensive Metabolic Panel 06/04/17 Range/Units 00:33 Sodium 143 (137-145) mmol/L Potassium 3.4 L (3.5-5.1) mmol/L Chloride 102 (98-107) mmol/L Carbon Dioxide 30 (22-30) mmol/L BUN 18 (9-20) mg/dL Creatinine 1.20 (0.66-1.25) mg/dL Glucose 102 H (74-99) mg/dL Calcium 9.9 (8.4-10.2) mg/dL AST 163 H (17-59) U/L ALT 266 H (21-72) U/L Alkaline Phosphatase 111 (38-126) U/L Total Protein 7.4 (6.3-8.2) g/dL Albumin 4.4 (3.5-5.0) g/dL Current Medications Generic Name Dose Route Start Last Admin Trade Name Freq PRN Reason Stop Dose Admin Atorvastatin Calcium 10 mg 06/04/17 21:00 Lipitor PO HS JASON Carvedilol 25 mg 06/04/17 21:00 Coreg PO BID@0730,2100 JASON Furosemide 40 mg 06/04/17 10:15 06/04/17 13:40 Lasix IV 40 mg Q12HR JASON Administration Hydromorphone HCl 1 mg 06/04/17 02:21 06/04/17 07:44 Dilaudid IVP 1 mg Q3H PRN Administration Pain Losartan Potassium 100 mg 06/04/17 09:00 06/04/17 13:40 Cozaar PO 100 mg DAILY JASON Administration Nitroglycerin 0.4 mg 06/04/17 02:01 Nitrostat SUBLINGUAL Q5M PRN Chest Pain Ondansetron HCl 4 mg 06/04/17 02:21 Zofran IVP Q6HR PRN Nausea And Vomiting Pantoprazole Sodium 40 mg 06/04/17 21:00 Protonix IVP BID JASON Intake and Output 06/03/17 06/04/17 06/04/17 22:59 06:59 14:59 Intake Total 200 Balance 200 Intake: Oral 200 Other: Voiding Method Toilet # Voids 1 Weight 110.8 kg 110.8 kg Patient Weight 06/05/17 06:59 Weight 110.8 kg 06/04/17 00:33 06/04/17 00:33 Assessment and Plan Plan: Assessment and plan #1 severe nonischemic cardiomyopathy with most recent known ejection fraction of 25% #2 abdominal pain and distention with abnormal liver function tests #3 chronic combined systolic and diastolic congestive heart failure #4 nonobstructive coronary artery disease #5 obstructive sleep apnea #6 obesity #7 pulmonary hypertension From Cardiology's perspective we will obtain 2-D echo with Doppler. Medications were reviewed, he is appropriately medicated. He will require further workup for abnormal liver function tests. May consider holding atorvastatin although he is only on 10 mg daily and this is likely not the reason for elevated liver enzymes. Patient will follow-up as an outpatient with his tank washer Dr. Red Segal. We will follow the patient on an as-needed basis. Please do not hesitate to contact us with questions. DRY STARCH OPERATOR note has been reviewed, I agree with a documented findings and plan of care. Patient was seen and examined.
--- NOTE | 2017-06-04 14:48 | P.PN ---
Progress Note - Text hospitalist interval note: Patient seen and examined by my partner Dr. Courtney gonzalez.Liliam Ruiz mario. Patient seen and examined at bedside. He states his abdominal pain is better with the pain medications. He has been having some shortness of breath and chest heaviness but denies overt chest pain. He is not having any nausea or vomiting at this time. vital signs: Temperature 97.7 heart rate 103 blood pressure 124/81 O2 saturation 93% on room air General: non toxic, no distress, appears at stated age Derm: no rashes, no lesions Head: atraumatic, normocephalic, symmetric Eyes: EOMI, no lid lag, anicteric sclera ENT: no post nasal drip, no thrush Mouth: no lip lesion, mucus membranes moist Cardiovascular: S1S2 reg, no murmur, positive posterior tibial pulse bilateral, Lungs: Rhonchi bilateral bases , no accessory muscle use Abdominal: soft, tender to palpation right upper quadrant, no guarding, no appreciable organomegaly Ext: no gross muscle atrophy, no edema, no contractures Neuro: CN II-XI grossly intact, no focal neuro deficits Psych: Alert, oriented, appropriate affect laboratory: Potassium 3.4, glucose 112, AST 163, ALT 266, hepatitis panel is negative Assessment/plan: #Abdominal pain-await liver ultrasound, GI recommendations appreciated, may need EGD, continue with PPI therapy #Acute exacerbation of systolic congestive heart failure, unknown ejection fraction cardiology recommendations appreciated. Lasix IV push, strict I's and O's, daily weight, Lipitor, Coreg, losartan #Dyslipidemia-continue statin therapy #Transaminitis-await liver ultrasound, follow liver function, Will not statin at this time due to severe cardiovascular disease, and liver enzymes remain elevated we'll hold statin therapy #hypokalemia-replace potassium, recheck in a.m0. # elevated troponin 1, not clinically significant-aspirin, statin, cardiology recommendations DVT prophylaxis: Heparin if no EGD Discussed with: [place]ul[place], family, GI THERAPEUTIC CASE MANAGER Anticipated discharge: 24-[address]: home A total of 35 minutes was spent on the care of this complex patient more than 50 % of the time was spent in counseling and care coordination.
--- NOTE | 2017-06-04 17:28 | ECHOF ---
Referral Reason:chf MEASUREMENTS -------- HEIGHT: 177.8 cm WEIGHT: 110.7 kg BP: 128/80 RVIDd: 3.1 cm (< 3.3) IVSd: 1.3 cm (0.6 - 1.1) LVIDd: 6.6 cm (3.9 - 5.3) LVPWd: 1.3 cm (0.6 - 1.1) IVSs: 1.6 cm LVIDs: 5.6 cm LVPWs: 1.6 cm LAESV Index (A-L): 45.87 ml/m Ao Diam: 4.0 cm (2.0 - 3.7) AV Cusp: 1.7 cm (1.5 - 2.6) LA Diam: 4.0 cm (2.7 - 3.8) MV EXCURSION: 19.132 mm (> 18.000) MV EF SLOPE: 149 mm/s (70 - 150) EPSS: 2.2 cm MV E Jared: 0.68 m/s MV DecT: 255 ms MV A Jared: 0.50 m/s MV E/A Ratio: 1.36 AR PHT: 683 ms RAP: 5.00 mmHg RVSP: 55.45 mmHg FINDINGS -------- Sinus rhythm. This was a technically adequate study. The left ventricle is moderately dilated. Overall left ventricular systolic function is severely impaired with, an EF between 20 - 25 %. The right ventricle is normal in size and function. LA is severely dilated >40 ml/m2 Electronic pacemaker lead seen in the right ventricular cavity. RA appears enlarged. Aortic valve is trileaflet and is mildly thickened. There is mild aortic regurgitation. The aortic pressure half-time by doppler is 683ms. There is no evidence of aortic stenosis. The mitral valve leaflets are mildly thickened. There is trace to mild mitral regurgitation. Trace tricuspid regurgitation present. There is moderate pulmonary hypertension. The right ventricular systolic pressure, as measured by Doppler, is 55.45mmHg. Trace/mild (physiologic) pulmonic regurgitation. The aortic root is moderately dilated. Normal inferior vena cava with normal inspiratory collapse consistent with estimated right atrial pressure of 5 mmHg. The pericardium is normal. There is no pericardial effusion. CONCLUSIONS -------- 1. Sinus rhythm. 2. The aortic pressure half-time by doppler is 683ms. 3. The mitral valve leaflets are mildly thickened. 4. There is trace to mild mitral regurgitation. 5. Trace tricuspid regurgitation present. 6. There is moderate pulmonary hypertension. 7. The right ventricular systolic pressure, as measured by Doppler, is 55.45mmHg. 8. Trace/mild (physiologic) pulmonic regurgitation. 9. The aortic root is moderately dilated to 4.1 cm. 10. There is no pericardial effusion. 11. This was a technically adequate study. 12. The left ventricle is moderately dilated. 13. Overall left ventricular systolic function is severely impaired with, an EF between 20 - 25 %. 14. LA is severely dilated >40 ml/m2 15. Electronic pacemaker lead seen in the right ventricular cavity. 16. RA appears enlarged. 17. Aortic valve is trileaflet and is mildly thickened. 18. There is mild aortic regurgitation. TRAVEL REGISTERED NURSE NICU: Isreal Hayes RDCS
[2017-06-04] MEDS ORDERED: POTASSIUM CHLORIDE ER 20 MEQ TAB.ER PO STA (19:43)
[2017-06-04] MEDS ORDERED: Potassium Replacement Protocol 1 EACH MISC MISCELLANE PRN (19:46)
[2017-06-04] MEDS: CARVEDILOL 12.5 MG TAB PO SCH (21:09)
[2017-06-04] MEDS: ATORVASTATIN 10 MG TAB PO SCH (21:09)
[2017-06-04] MEDS: PANTOPRAZOLE 40 MG/10 ML VIAL IVP SCH (21:10)
[2017-06-05] MEDS: HYDROmorphone 1 MG/ML 1 ML SYRINGE IVP PRN ×6 (03:47→23:37)
[2017-06-05 06:20] LABS: CH 30.2; CHCM 33.4; HCT 39.5 % (39.0-53.0); HDW 2.72; HGB 12.7 gm/dL (13.0-17.5); MCH 29.4 pg (25.0-35.0); MCHC 32.3 g/dL (31.0-37.0); MCV 91.1 fL (80.0-100.0); Mean Platelet Volume 8.1; RBC 4.33 m/uL (4.30-5.90); RDW 14.8 % (11.5-15.5); WBC 6.8 k/uL (3.8-10.6)
[2017-06-05 06:52] LABS: Anion Gap 9 mmol/L; Blood Urea Nitrogen 18 mg/dL (9-20); Calcium 9.1 mg/dL (8.4-10.2); Carbon Dioxide 35 mmol/L (22-30); Chloride 101 mmol/L (98-107); Cholesterol 143 mg/dL (<200); Glucose 101 mg/dL (74-99); HDL Cholesterol 48 mg/dL (40-60); Magnesium 2.3 mg/dL (1.6-2.3); Non-African American GFR(MDRD) 53 (>60 ml/min/1.73 sqM); Potassium 3.9 mmol/L (3.5-5.1); Sodium 145 mmol/L (137-145)
[2017-06-05] MEDS: CARVEDILOL 12.5 MG TAB PO SCH ×2 (07:01→21:32)
--- NOTE | 2017-06-05 07:43 | XR ---
EXAMINATION TYPE: XR chest 2V DATE OF EXAM: 06/05/2017 COMPARISON: 06/04/2017 TECHNIQUE: PA and lateral views submitted. HISTORY: Shortness of breath FINDINGS: Heart is enlarged and there is a cardiac device with perihilar infiltrate on the right mild central i nterstitial prominence. No pleural effusion or pneumothorax. Correlate for underlying COPD. Mild dege nerative change of the spine. IMPRESSION: 1. Mild perihilar infiltrate and central interstitial prominence seen with interstitial chronic lung disease or venous congestion.
[2017-06-05] MEDS: FUROSEMIDE 10 MG/ML 4 ML VIAL IV SCH (08:07)
[2017-06-05] MEDS: PANTOPRAZOLE 40 MG/10 ML VIAL IVP SCH ×2 (08:07→21:32)
[2017-06-05] MEDS: LOSARTAN 50 MG TAB PO SCH (08:07)
[2017-06-05] MEDS ORDERED: ASPIRIN 325 MG TAB PO SCH (09:00)
[2017-06-05] MEDS ORDERED: RX INFO: IV CONTRAST WAS GIVEN 1 EACH MISC MISCELLANE PRN ×2 (10:08→10:16)
--- NOTE | 2017-06-05 10:20 | P.PN ---
Subjective Principal diagnosis: abdominal pain Patient is a 61-year-old -Sammarinese male with history of systolic congestive heart failure, dyslipidemia, and obesity who presented with complaints of abdominal pain. In the ER he underwent an extensive evaluation. He was subsequently diagnosed with elevated liver enzymes, acute exacerbation of congestive heart failure, and possible GERD. He was started on IV PPI, IV Lasix, and pain control. GI and cardiology consults were requested. He underwent liver ultrasound which showed hepatic mass and hepatic steatosis. Patient seen and examined at bedside. He continues to have abdominal pain. He states that the medicines take away the pain but then he becomes very tired and sleepy. He denies any nausea or vomiting. He states that he is still short of breath and this slightly worse than yesterday. He has no other complaints currently. Him and his were updated on finding of possible hepatic mass and plan for CT chest, abdomen, and pelvis today. Objective - Vital Signs Vital signs: Vital Signs Temp 97 F L 06/05/17 08:00 Pulse 82 06/05/17 08:00 Resp 20 06/05/17 08:00 BP 136/99 06/05/17 08:00 Pulse Ox 93 L 06/05/17 08:00 Intake & Output 06/04/17 06/05/17 06/05/17 18:59 06:59 18:59 Intake Total 900 Output Total 1250 900 Balance -350 -900 Weight 110.8 kg 108.8 kg Intake: Oral 900 Output: Urine 1250 900 Other: Voiding Method Toilet # Voids 2 - Exam General: non toxic, mild distress, appears at stated age, obese Derm: no rashes, no lesions Head: atraumatic, normocephalic, symmetric Eyes: EOMI, no lid lag, anicteric sclera ENT: no post nasal drip, no thrush Mouth: no lip lesion, mucus membranes moist Cardiovascular: S1S2 reg, no murmur, positive posterior tibial pulse bilateral, Lungs: Crackles bilateral bases, no accessory muscle use Abdominal: soft, nontender to palpation, no guarding, no appreciable organomegaly Ext: no gross muscle atrophy, no edema, no contractures Neuro: CN II-XI grossly intact, no focal neuro deficits Psych: Alert, oriented, appropriate affect - Labs CBC & Chem 7: 06/05/17 05:55 06/05/17 05:55 Labs: Abnormal Lab Results - Last 24 Hours (Table) 06/05/17 06/05/17 Range/Units 05:55 05:55 Hgb 12.7 L (13.0-17.5) gm/dL Carbon Dioxide 35 H (22-30) mmol/L Creatinine 1.36 H (0.66-1.25) mg/dL Glucose 101 H (74-99) mg/dL Assessment and Plan Plan: #Abdominal pain left liver mass-CT chest, abdomen, pelvis with contrast. Check AFP. GI recommendations appreciated, may need EGD, continue with PPI therapy #Acute exacerbation of systolic congestive heart failure, unknown ejection fraction cardiology recommendations appreciated. Continue lasix IV push, strict I's and O's, daily weight, Lipitor, Coreg, losartal #Dyslipidemia-continue statin therapy #Transaminitis- follow liver function, Will not discontinue statin at this time due to severe cardiovascular disease #hypokalemia, resolved. # elevated troponin 1, not clinically significant-aspirin, statin, cardiology recommendations DVT prophylaxis: SCDs Discussed with: patient, Anticipated discharge: 48-[address]: home A total of 35 minutes was spent on the care of this complex patient more than 50 % of the time was spent in counseling and care coordination.
[2017-06-05] MEDS: IOHEXOL 350 MG/ML 25 ML BOTTLE (ORAL USE) PO PRN ×2 (10:34→11:38)
[2017-06-05] MEDS: HYDROcodone/APAP 7.5-325MG 1 EACH TAB PO PRN ×2 (10:36→17:45)
--- NOTE | 2017-06-05 17:23 | CT ---
EXAMINATION TYPE: CT ChestAbdPelvis w con DATE OF EXAM: 06/05/2017 INDICATION: Shortness of breath, liver lesions COMPARISON: CT abdomen pelvis 06/02/2017 CT DLP: 2140.2 mGycm CONTRAST: Performed with Oral Contrast and with IV Contrast, patient injected with 100 mL of Omnipaque 300. TECHNIQUE: Axial images at 5 mm thick sections. Reconstructed images in the coronal plane. Delayed images through the kidneys. FINDINGS: CT CHEST: Portion of the thyroid visualized is normal. No suspicious lung nodules or focal infiltrates are present. Cardiomegaly is present. No enlarged mediastinal or hilar adenopathy is evident. Scattered small pretracheal lymph nodes are p resent. The largest node in the pretracheal space is enlarged measuring 1.3 cm. Small right hilar lym ph nodes are present. The ascending aorta diameter at the level of the main pulmonary artery is 4.5 cm. The main pulmonary artery diameter at the bifurcation is 3.[address] ABDOMEN: Liver: Liver has diminished density in relation to the spleen compatible with moderate fatty infiltra tion of the liver. The small hypodensities previously identified are not as apparent on the current e xamination. These appear more apparent on the delayed images measure 0.7 cm mid right lobe liver, 0.6 cm and 1.0 cm mid anterior right liver and 1.5 cm in the medial liver. Spleen: Normal Pancreas: Normal Adrenal glands: The adrenal glands are normal. Gallbladder: Normal Kidneys: No masses are evident. No hydronephrosis is present. Multiple renal cysts are present. The largest is at the inferior pole measures 9.5 cm in diameter and 5 Hounsfield units. The largest on t he right posterior inferior right kidney measuring 3.2 cm in diameter and 6 Hounsfield units. There a re additional cysts present with larger cysts on the left than the right. Delayed images were obtain ed through the kidneys, which remain unremarkable. Aorta: Vascular calcification is within the aorta. Inferior vena cava: Normal. CT PELVIS: Loops of bowel within the abdomen and pelvis are normal. There are loops of bowel which are incom pletely distended or lack oral contrast limiting their evaluation. Appendix: Normal as visualized. Urinary bladder: Normal. Genitourinary structures: Prostate is prominent. Osseous structures: No suspicious lytic or sclerotic lesions. Degenerative disc changes are present L 5-S1. IMPRESSIONS: 1. Stable small hypodensities within the liver may be hepatic cysts. 2. Moderate fatty infiltration liver. 3. Multiple bilateral large renal cysts. 4. Enlarged 1.3 cm pretracheal lymph node
--- NOTE | 2017-06-05 21:15 | CONS ---
DATE OF SERVICE: 06/05/17 REASON FOR CONSULTATION: Abdominal pain and elevated LFT. HISTORY OF PRESENT ILLNESS: The patient is a 61-year-old male admitted to the hospital with severe systolic congestive heart failure, admitted to the hospital with diffuse abdominal pain for the last five days duration. He described the pain mostly in the upper abdomen radiating to the lower abdomen associated with some nausea but no emesis. Eating makes the pain worse. Denies any rectal bleeding or melena. Never had these symptoms in the past. Denies any recent NSAID use. He was started empirically on Protonix 40 mg twice daily despite which remains symptomatic. He was also noticed to have mild elevation of serum transaminases and ultrasound of the abdomen was done yesterday that showed evidence of hepatic steatosis. Also there was mention of a small hepatic cyst and a 3 x 3 cm suspicious hepatic lesion in segmental area of the liver. MRI was recommended by the radiologist. The patient, however, has pacemaker/defibrillator placed two years ago. Ultrasound did not show any gallstones or biliary ductal dilation. On physical examination, He appears comfortably in no apparent distress. Vital signs are stable. Blood pressure 137/91, pulse rate 71, temperature 97.3. HEENT: Unremarkable. Conjunctivae pink. Sclerae anicteric. Oral cavity no lesions. Neck no JVD or lymph node enlargement. Chest clear to auscultation. Heart regular rate and rhythm. Abdomen is soft. Slightly obese. Mild diffuse tenderness of the lower abdomen. Extremities no pedal edema. Skin no rashes. Neurological: Alert and oriented times three. No focal deficits. IMPRESSION: 1. Mild diffuse abdominal pain for the last five days duration. Ultrasound of the abdomen done yesterday that showed evidence of hepatic steatosis and a 3 cm possible solid mass in the segment area of the liver. I reviewed the Ct scan that was done on 06/02 which showed hepatomegaly with fatty liver but there was no mention of any solid mass at that time. There was a small umbilical hernia noted. 2. Exacerbation of congestive heart failure. Presently on IV Lasix. Still remains short of breath. 3. Elevated serum transaminases that was noted yesterday. Repeat transaminases from this morning are still pending at the time of this dictation. RECOMMENDATIONS: 1. Continue IV Protonix 40 mg twice daily. 2. We will hold off on upper endoscopy at this time since his symptoms are very nonspecific and he describes the pain to be located diffusely all over the abdomen. 3. In regards to the liver lesion, that was noted on ultrasound of the abdomen , CT of the abdomen and pelvis was already ordered by Dr. Graham and we will await the results. 4. We will continue to follow closely during hospital stay. Thank you for this consultation. ASHOK
[2017-06-05] MEDS: ATORVASTATIN 10 MG TAB PO SCH (21:32)
[2017-06-06] MEDS: HYDROcodone/APAP 7.5-325MG 1 EACH TAB PO PRN ×2 (02:17→07:49)
[2017-06-06] MEDS: HYDROmorphone 1 MG/ML 1 ML SYRINGE IVP PRN ×6 (05:21→23:35)
[2017-06-06 06:31] LABS: ALT 188 U/L (21-72); AST 68 U/L (17-59); Alkaline Phosphatase 94 U/L (38-126); Anion Gap 9 mmol/L; Blood Urea Nitrogen 15 mg/dL (9-20); Calcium 9.6 mg/dL (8.4-10.2); Carbon Dioxide 34 mmol/L (22-30); Chloride 98 mmol/L (98-107); Glucose 121 mg/dL (74-99); Magnesium 2.3 mg/dL (1.6-2.3); Non-African American GFR(MDRD) 56 (>60 ml/min/1.73 sqM); Potassium 3.6 mmol/L (3.5-5.1); Sodium 141 mmol/L (137-145); Total Bilirubin 0.8 mg/dL (0.2-1.3)
[2017-06-06] MEDS: CARVEDILOL 12.5 MG TAB PO SCH ×2 (06:50→20:14)
[2017-06-06] MEDS: LOSARTAN 50 MG TAB PO SCH (07:50)
[2017-06-06] MEDS: PANTOPRAZOLE 40 MG/10 ML VIAL IVP SCH ×2 (07:50→20:14)
[2017-06-06] MEDS ORDERED: FUROSEMIDE 10 MG/ML 4 ML VIAL IV SCH (09:00)
[2017-06-06] MEDS ORDERED: LACTULOSE 20 GM/30 ML CUP PO ONE (10:01)
--- NOTE | 2017-06-06 10:03 | P.PN ---
Subjective Principal diagnosis: abdominal pain Objective - Vital Signs Vital signs: Vital Signs Temp 97.7 F 06/06/17 08:00 Pulse 85 06/06/17 04:00 Resp 20 06/06/17 08:00 BP 135/74 06/06/17 08:00 Pulse Ox 97 06/06/17 08:00 Intake & Output 06/05/17 06/06/17 06/06/17 18:59 06:59 18:59 Intake Total 200 Output Total 150 550 Balance 50 -550 Weight 108.5 kg Intake: Oral 200 Output: Urine 150 550 Other: Voiding Method Toilet # Voids 1 - Labs CBC & Chem 7: 06/05/17 05:55 06/06/17 05:52 Labs: Abnormal Lab Results - Last 24 Hours (Table) 06/06/17 Range/Units 05:52 Carbon Dioxide 34 H (22-30) mmol/L Creatinine 1.30 H (0.66-1.25) mg/dL Glucose 121 H (74-99) mg/dL AST 68 H (17-59) U/L ALT 188 H (21-72) U/L
[2017-06-06] MEDS ORDERED: NA PHOS,M-B/NA PHOS,DI-BA 133 ML ENEMA RECTAL ONE (11:23)
[2017-06-06] MEDS: HYDROcodone/APAP 10-325MG 1 EACH TAB PO PRN ×3 (12:35→23:38)
--- NOTE | 2017-06-06 15:37 | PN ---
DATE OF SERVICE: 06/06/2017 Patient is a 61-year-old white male admitted to the hospital with diffuse abdominal pain, mildly elevated LFTs, not feeling well, some nausea and vomiting as well as constipation. He had CT of the abdomen and pelvis as well as chest done yesterday that was unremarkable other than small hepatic cyst. He continues to not feel well. He was given some Lactulose this morning. Since then his abdominal pain has gotten much worse. No bowel movements for the last three days. He does complain of some shortness of breath. No fever, chills or night sweats. PHYSICAL EXAMINATION: He appears somewhat uncomfortable. VITAL SIGNS: Stable. Blood pressure is 126/83, pulse rate 82 and temperature 96.4. HEENT: Unremarkable. Conjunctivae pink. Sclerae anicteric. Oral cavity - no lesions. NECK: No JVD or lymph node enlargement. CHEST: Clear to auscultation. HEART: Regular rate and rhythm. ABDOMEN: Soft. Bowel sounds are positive. Slightly distended. EXTREMITIES: No pedal edema. SKIN: No rashes. NEURO: He is alert and oriented x3. No focal deficits. LABS DONE TODAY: AST is down to 68, ALT is down to 188. T. bili and alkaline phosphatase are within normal limits. CBC from yesterday was within normal limits. IMPRESSION: 1. This is patient who presents to the hospital with abdominal pain for the last 5-6 days duration associated with some elevation of serum transaminases which are gradually improving. However, he continues to have persistent abdominal pain, more diffuse, associated with intermittent nausea, vomiting and constipation. CT of the abdomen, pelvis and chest was unremarkable. 2. Fat liver disease. 3. Congestive heart failure status post AICD placement. 4. Elevated liver function tests which are gradually improving. Ultrasound of the gallbladder did not show any evidence of gallstones. RECOMMENDATIONS: 1. Will proceed with an upper endoscopy tomorrow to evaluate for abdominal pain. 2. Continue with proton pump inhibitors. 3. Will start him on oral MiraLAX 17 gm twice day for the chronic constipation and hold off on Lactulose for now. 4. Give him a Fleets enema this morning. 5. Continue with clear liquid diet and we will follow him closely during his hospital stay. Thank you for this consultation. [facility]ITAL[facility]
--- NOTE | 2017-06-06 17:57 | P.PN ---
Subjective Principal diagnosis: abdominal pain Patient is a 61-year-old -Russian male with history of systolic congestive heart failure, dyslipidemia, and obesity who presented with complaints of abdominal pain. In the ER he underwent an extensive evaluation. He was subsequently diagnosed with elevated liver enzymes, acute exacerbation of congestive heart failure, and possible GERD. He was started on IV PPI, IV Lasix, and pain control. GI and cardiology consults were requested. He underwent liver ultrasound which showed hepatic mass and hepatic steatosis. CT chest/abdomen/pelvis with contrast showed liver cysts. He has had persistent abdominal pain despite IV PPI use. Patient seen and examined at bedside. Continues to have abdominal pain. States pain pills more than IV pain medications. Also complains of constipation with last bowel movement greater than 3 days ago. Tried prune juice without success. He reports that shortness of breath is only when pain is severe, when his pain is controlled to his breathing is normal. He denies chest pain or edema. Objective - Vital Signs Vital signs: Vital Signs Temp 97.7 F 06/06/17 08:00 Pulse 85 06/06/17 04:00 Resp 20 06/06/17 08:00 BP 135/74 06/06/17 08:00 Pulse Ox 97 06/06/17 08:00 Intake & Output 06/05/17 06/06/17 06/06/17 18:59 06:59 18:59 Intake Total 200 Output Total 150 550 Balance 50 -550 Weight 108.5 kg Intake: Oral 200 Output: Urine 150 550 Other: Voiding Method Toilet # Voids 1 - Exam General: non toxic, mild distress, appears at stated age, obese Derm: no rashes, no lesions Head: atraumatic, normocephalic, symmetric Eyes: EOMI, no lid lag, anicteric sclera ENT: no post nasal drip, no thrush Mouth: no lip lesion, mucus membranes moist Cardiovascular: S1S2 reg, no murmur, positive posterior tibial pulse bilateral, Lungs: Clear to auscultation bilateral, no accessory muscle use Abdominal: soft, + tender to palpation diffusely, slight distended, no guarding , no appreciable organomegaly Ext: no gross muscle atrophy, no edema, no contractures Neuro: CN II-XI grossly intact, no focal neuro deficits Psych: Alert, oriented, appropriate affect - Labs CBC & Chem 7: 06/05/17 05:55 06/06/17 05:52 Labs: Abnormal Lab Results - Last 24 Hours (Table) 06/06/17 Range/Units 05:52 Carbon Dioxide 34 H (22-30) mmol/L Creatinine 1.30 H (0.66-1.25) mg/dL Glucose 121 H (74-99) mg/dL AST 68 H (17-59) U/L ALT 188 H (21-72) U/L Assessment and Plan Plan: #Abdominal pain and elevated LFTs-CT chest, abdomen, pelvis with contrast showed liver cysts only. AFP pending. GI recommendations appreciated EGD in a.m. , continue with PPI therapy, increase oral pain medications to limit IV pain medications #Constipation-initially had ordered lactulose, this was transitioned to MiraLAX twice a day and Fleet enema 1 by gastroenterology. #Chronic systolic congestive heart failure, unknown ejection fraction cardiology recommendations appreciated. lasix PO, strict I's and O's, daily weight, Lipitor, Coreg, losartan #Dyslipidemia-continue statin therapy #Transaminitis- follow liver function, Will not discontinue statin at this time due to severe cardiovascular disease #hypokalemia, resolved. Resolved: Elevated troponin Acute CHF DVT prophylaxis: SCDs Discussed with: patient, Anticipated discharge: [address]: home A total of 35 minutes was spent on the care of this complex patient more than 50 % of the time was spent in counseling and care coordination.
[2017-06-06] MEDS: POLYETHYLENE GLYCOL 3350 17 GM POWD.PACK PO SCH (18:16)
[2017-06-06] MEDS: ATORVASTATIN 10 MG TAB PO SCH (20:14)
[2017-06-07] MEDS: HYDROmorphone 1 MG/ML 1 ML SYRINGE IVP PRN ×7 (03:23→23:19)
[2017-06-07 05:59] LABS: ALT 157 U/L (21-72); AST 58 U/L (17-59); Alkaline Phosphatase 85 U/L (38-126); Anion Gap 11 mmol/L; Blood Urea Nitrogen 14 mg/dL (9-20); Calcium 9.3 mg/dL (8.4-10.2); Carbon Dioxide 29 mmol/L (22-30); Chloride 99 mmol/L (98-107); Glucose 105 mg/dL (74-99); Magnesium 2.3 mg/dL (1.6-2.3); Non-African American GFR(MDRD) >60 (>60 ml/min/1.73 sqM); Sodium 139 mmol/L (137-145); Total Protein 6.8 g/dL (6.3-8.2)
[2017-06-07] MEDS ORDERED: POTASSIUM CHLORIDE 20 MEQ in WATER FOR INJECTION 1 100ML.BAG IVPB STA (07:39)
[2017-06-07] MEDS: PANTOPRAZOLE 40 MG/10 ML VIAL IVP SCH ×2 (08:03→21:33)
[2017-06-07] MEDS: POTASSIUM CHLORIDE 10 MEQ, LIDOCAINE 2% INJ 10 MG in SODIUM CHLORIDE 0.9% 100 ML IV SCH ×2 (08:03→09:36)
[2017-06-07] MEDS: CARVEDILOL 12.5 MG TAB PO SCH ×2 (08:31→20:02)
[2017-06-07] MEDS: POLYETHYLENE GLYCOL 3350 17 GM POWD.PACK PO SCH (08:31)
[2017-06-07] MEDS: LOSARTAN 50 MG TAB PO SCH (08:32)
[2017-06-07] MEDS: POTASSIUM CHLORIDE ER 20 MEQ TAB.ER PO SCH (08:32)
[2017-06-07] MEDS ORDERED: LACTATED RINGERS 1,000 ML IV ONE (12:53)
[2017-06-07] MEDS ORDERED: PROPOFOL 10 MG/ML 20 ML VIAL IV ONE (12:55)
[2017-06-07] MEDS ORDERED: LIDOCAINE 1% INJ 10MG/ML (20 ML MDV) ONE (12:55)
--- NOTE | 2017-06-07 13:33 | P.PCN ---
Date of Procedure: 06/07/17 Preoperative Diagnosis: Postoperative Diagnosis: Procedure(s) Performed: Procedure: Esophagogastroduodenoscopy and biopsy. Preoperative diagnosis: Abdominal pain, nausea and vomiting. Postoperative diagnosis: 1. Very small sliding hiatal hernia with no obvious esophagitis or complicated reflux disease. 2. Mild antral gastritis. 3. No ulcers or gastric outlet obstruction. 4. Multiple biopsies obtained from the duodenum, antrum and esophagus. Preparation and sedation: Was provided by anesthesia. Brief clinical history: The patient is a 61-year-old male who was admitted to the hospital because of abdominal pain, not feeling well and intermittent nausea and vomiting. Computed tomography scan of the abdomen showed liver cysts and fatty liver but no other pathology to account for his symptoms. He also had slight elevation in his transaminases which is improving. The details are summarized in the history and physical and dictated consultation and progress notes. This evaluation is to assess for peptic ulcer disease or other pathology. Procedure: With the patient on his left lateral decubitus position and after informed consent and adequate sedation, I passed the Olympus-GIF 160 video upper endoscope through the cricopharyngeus down the esophagus. GE junction was around 41-42 cm from the incisors and there was a very small sliding hiatal hernia. The esophagus did not show any obvious esophagitis or complicated reflux disease. The endoscope was then passed into the stomach which was insufflated with air and inspected in detail including the retroflex view in the cardia. There was some mottling and erythema in the antrum but no ulcers or erosions. Pyloric channel, duodenal bulb, post bulbar area and descending duodenum did not show any obvious abnormalities including any ulcers or bleeding. I obtained biopsies from the duodenum, antrum and esophagus then the endoscope was withdrawn. The patient tolerated the procedure well. Plan: The patient was reassured and I discussed with his . We will await pathology results. Will allow diet as tolerated and further plans to be made based on his course and biopsy results. We will continue to follow with you with interest. Implants: Indications for Procedure: Operative Findings: Description of Procedure:
[2017-06-07] MEDS: FUROSEMIDE 20 MG TAB PO SCH (14:26)
--- NOTE | 2017-06-07 18:13 | P.PN ---
Subjective Principal diagnosis: abdominal pain Patient is a 61-year-old -Martiniquais male with history of systolic congestive heart failure, dyslipidemia, and obesity who presented with complaints of abdominal pain. In the ER he underwent an extensive evaluation. He was subsequently diagnosed with elevated liver enzymes, acute exacerbation of congestive heart failure, and possible GERD. He was started on IV PPI, IV Lasix, and pain control. GI and cardiology consults were requested. He underwent liver ultrasound which showed hepatic mass and hepatic steatosis. CT chest/abdomen/pelvis with contrast showed liver cysts. He has had persistent abdominal pain despite IV PPI use. Patient seen and examined at bedside. 4 bowel movements yesterday, upset about having to stay nothing by mouth for EGD. States pain is still there. No nausea or vomiting. No chest pain or shortness of breath. Objective - Vital Signs Vital signs: Vital Signs Temp 96.9 F L 06/07/17 03:32 Pulse 70 06/07/17 03:33 Resp 18 06/07/17 03:33 BP 136/97 06/07/17 03:32 Pulse Ox 94 L 06/07/17 03:32 Intake & Output 06/06/17 06/07/17 06/07/17 18:59 06:59 18:59 Intake Total 380 700 Output Total 2200 600 Balance -1820 100 Weight 107.8 kg Intake: IV 20 flush 20 Oral 380 680 Output: Urine 2200 600 Other: Voiding Method Toilet # Voids 1 2 # Bowel Movements 1 - Exam General: non toxic, mild distress, appears at stated age, obese Derm: no rashes, no lesions Head: atraumatic, normocephalic, symmetric Eyes: EOMI, no lid lag, anicteric sclera ENT: no post nasal drip, no thrush Mouth: no lip lesion, mucus membranes moist Cardiovascular: S1S2 reg, no murmur, positive posterior tibial pulse bilateral, Lungs: Clear to auscultation bilateral, no accessory muscle use Abdominal: soft, + tender to palpation diffusely, slight distended, no guarding , no appreciable organomegaly Ext: no gross muscle atrophy, no edema, no contractures Neuro: CN II-XI grossly intact, no focal neuro deficits Psych: Alert, oriented, appropriate affect - Labs CBC & Chem 7: 06/05/17 05:55 06/07/17 16:11 Labs: Abnormal Lab Results - Last 24 Hours (Table) 06/07/17 Range/Units 05:27 Potassium 3.0 L* (3.5-5.1) mmol/L Glucose 105 H (74-99) mg/dL ALT 157 H (21-72) U/L Assessment and Plan Plan: #Abdominal pain and elevated LFTs-CT chest, abdomen, pelvis with contrast showed liver cysts only. AFP pending. EGD results pending at the time of my exam, continue with PPI therapy, pain control #Constipation-continue MiraLAX #Chronic systolic congestive heart failure, unknown ejection fraction cardiology recommendations appreciated. lasix PO, strict I's and O's, daily weight, Lipitor, Coreg, losartan #Dyslipidemia-continue statin therapy #Transaminitis- follow liver function, Will not discontinue statin at this time due to severe cardiovascular disease #hypokalemia, resolved. Resolved: Elevated troponin Acute CHF DVT prophylaxis: SCDs Discussed with: patient, Anticipated discharge: [address]: home A total of 35 minutes was spent on the care of this complex patient more than 50 % of the time was spent in counseling and care coordination.
[2017-06-07] MEDS: ATORVASTATIN 10 MG TAB PO SCH (20:02)
[2017-06-07 21:48] VITALS: RESP 16; TEMP 97.2
[2017-06-08] MEDS: HYDROmorphone 1 MG/ML 1 ML SYRINGE IVP PRN ×2 (03:03→06:00)
[2017-06-08 04:23] LABS: Glucose,Whole Blood 133 mg/dL (75-99)
[2017-06-08] MEDS: CARVEDILOL 12.5 MG TAB PO SCH (06:23)
[2017-06-08 07:05] LABS: Anion Gap 13 mmol/L; Blood Urea Nitrogen 14 mg/dL (9-20); Calcium 9.9 mg/dL (8.4-10.2); Carbon Dioxide 28 mmol/L (22-30); Chloride 101 mmol/L (98-107); Glucose 123 mg/dL (74-99); Non-African American GFR(MDRD) >60 (>60 ml/min/1.73 sqM); Potassium 3.4 mmol/L (3.5-5.1); Sodium 142 mmol/L (137-145)
[2017-06-08] MEDS: FUROSEMIDE 20 MG TAB PO SCH (08:08)
[2017-06-08] MEDS: POLYETHYLENE GLYCOL 3350 17 GM POWD.PACK PO SCH (08:08)
[2017-06-08] MEDS: LOSARTAN 50 MG TAB PO SCH (08:08)
[2017-06-08] MEDS: PANTOPRAZOLE 40 MG/10 ML VIAL IVP SCH (08:08)
[2017-06-08] MEDS: POTASSIUM CHLORIDE ER 20 MEQ TAB.ER PO SCH (08:09)
[2017-06-08 08:11] VITALS: BP 123/71; PULSE 69
--- NOTE | 2017-06-08 10:54 | P.PN ---
Subjective Principal diagnosis: elevated liver enzymes abdominal pain 61-year-old gentleman admitted with elevated liver enzymes and abdominal pain status post normal EGD. Feels better today. Minimal abdominal discomfort. Anticipating discharge. LFTs improving. Objective - Vital Signs Vital signs: Vital Signs Temp 97.2 F L 06/08/17 03:11 Pulse 69 06/08/17 08:00 Resp 16 06/08/17 08:00 BP 123/71 06/08/17 08:00 Pulse Ox 96 06/08/17 08:00 Intake & Output 06/07/17 06/08/17 06/08/17 18:59 06:59 18:59 Intake Total 660 50 200 Output Total 800 Balance -140 50 200 Intake: IV 220 50 flush 20 50 Intake, IV Titration 200 Amount Potassium Chloride 10 meq 200 Lidocaine 2% Inj 10 mg In Sodium Chloride 0.9% 100 ml @ 100 mls/hr IV Q1HR JASON Rx#:[id number] Oral 240 200 Output: Urine 800 Other: Voiding Method Toilet Toilet Toilet # Voids 1 1 # Bowel Movements 1 - Exam General appearance: The patient is alert, oriented, in no acute distress. HET: Head is normocephalic and atraumatic. Pupils are equal and reactive. Oropharynx is clear without lesions. Neck: Supple without lymphadenopathy. Trachea midline. Heart: S1 S2. Regular rate and rhythm. Lungs: No crackles or wheezes are heard. Abdomen: Soft, nontender, nondistended with bowel sounds. No peritoneal signs. No palpable organomegaly or masses. Extremities: Normal skin color and turgor. No cyanosis, rash, ulceration, clubbing, or edema. Radial and pedal pulses are 2/4 bilaterally. Neurological: No focal deficits. Strength and sensation are grossly intact. - Labs CBC & Chem 7: 06/05/17 05:55 06/08/17 05:51 Labs: Abnormal Lab Results - Last 24 Hours (Table) 06/08/17 06/08/17 Range/Units 04:04 05:51 Potassium 3.4 L (3.5-5.1) mmol/L Glucose 123 H (74-99) mg/dL POC Glucose (mg/dL) 133 H (75-99) mg/dL Assessment and Plan (1) Transaminitis Narrative/Plan: Etiology unclear possible passive venous congestion with history of CHF possible nonalcoholic steatohepatitis possible gallbladder pathology. Status: Acute (2) Abdominal pain Narrative/Plan: Status post normal EGD Status: Acute (3) Nonalcoholic hepatosteatosis Status: Chronic (4) Hepatomegaly Status: Chronic (5) CHF (congestive heart failure) Status: Chronic Plan: 1. Discharge per medicine. Follow-up in GI office in 2-3 weeks for reevaluation. 2. Avoid hepatotoxic medications. Repeat liver function tests within a week of discharge. 3. Continue with Prilosec 40 mg daily on discharge. Assessment and plan of care discussed with Dr. Caraballo
--- NOTE | 2017-06-08 17:19 | P.DS ---
Providers Date of admission: 06/04/17 01:59 Expected date of discharge: 06/08/17 Attending physician: Seymour Valdez MD Consults: 06/04/17 02:13 Consult Physician Urgent Consulting Provider: [facility] Consult Reason/Comments: CHF Exacerbation; Elevated Troponin Do you want consulting provider notified?: Yes 06/04/17 02:23 Consult Physician Stat Consulting Provider: Stephania Pierce Consult Reason/Comments: Abdominal pain; Elevated liver enzymes; Possible ulcer Do you want consulting provider notified?: Yes Primary care physician: Physician Nonstaff - Discharge Diagnosis(es) (1) Abdominal pain Status: Acute (2) Acute exacerbation of CHF (congestive heart failure) Status: Acute (3) Elevated liver enzymes Status: Acute (4) Hypokalemia Status: Acute Hospital Course: Patient is a 61-year-old -[place] male with history of systolic congestive heart failure, dyslipidemia, and obesity who presented with complaints of abdominal pain. In the ER he underwent an extensive evaluation. He was subsequently diagnosed with elevated liver enzymes, acute exacerbation of congestive heart failure, and possible GERD. He was started on IV PPI, IV Lasix, and pain control. GI and cardiology consults were requested. ECHO was donoe which appears uncharged with an EF of 25%. After a few days of diuresis his breathing had greatly improved. He underwent liver ultrasound which showed hepatic mass and hepatic steatosis. CT chest/abdomen/pelvis with contrast showed liver cysts but no other significant findings. He has had persistent abdominal pain despite IV PPI use. He had constipation which was resolved with miralax and enema. He underwent EGD which was negative. His abdominal pain improved after constipation resolved. GI felt that his abd pain may be functional or stress induced. His pain had improved, his CHF was at baseline, and he was feeling better. He was determined stable to discharge home. He reported increased stress at home which was felt may be a trigger for his abdominal pain and he was started on prn low dose Xanax. 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 Marshall feels appropriate. He was subsequently discharged home in stable condition. Patient seen and examined at bedside. Abdominal pain improved, feeling better, has been up and ambulating in hallways. General: non toxic, no distress, appears at stated age Derm: no rashes, no lesions Head: atraumatic, normocephalic, symmetric Eyes: EOMI, no lid lag, anicteric sclera ENT: no post nasal drip, no thrush Mouth: no lip lesion, mucus membranes moist Cardiovascular: S1S2 reg, no murmur, positive posterior tibial pulse bilateral, Lungs: CTA bilateral, no rhonchi, no rales , no accessory muscle use Abdominal: soft, nontender to palpation, no guarding, no appreciable organomegaly Ext: no gross muscle atrophy, no edema, no contractures Neuro: CN II-XI grossly intact, no focal neuro deficits Psych: Alert, oriented, appropriate affect A total of 35 minutes of time was spent preparing this complex discharge summary. Pertinent Studies: CT Chest, abdomen, pelvis with moderate fatty infiltration of the liver, hepatic cyst, multiple bilateral large renal cysts, enlarged 1.3 cm pretracheal lymph node Liver ultrasound-solid hepatic lesion within segment 8 measuring 3.1 x 3.1 cm superimposed on background of hepatic steatosis and benign-appearing hepatic and renal cysts Echocardiogram: Trace tricuspid regurg, moderate pulmonary hypertension, junction fraction 20-25%, mild aortic regurgitation, enlarged right atrium Procedures: EGD: No signs of gastritis or ulcer Patient Condition at Discharge: Stable Plan - Discharge Summary New Discharge Prescriptions: New Furosemide [Lasix] 20 mg PO DAILY #30 tab HYDROcodone/APAP 10-325MG [[place] 10-325] 1 each PO Q4HR PRN #21 tab PRN Reason: Pain Potassium Chloride ER [K-Dur 20] 20 meq PO DAILY #30 tab ALPRAZolam [Xanax] 0.5 mg PO TID PRN #45 tablet PRN Reason: Anxiety Continue Multivitamins, Thera [Multivitamin (formulary)] 1 tab PO DAILY Aspirin EC [Ecotrin Low Dose] 81 mg PO DAILY Losartan Potassium 100 mg PO DAILY Carvedilol [Coreg] 25 mg PO BID@0730,2100 Atorvastatin Calcium [Lipitor] 10 mg PO HS Omeprazole [PriLOSEC] 40 mg PO DAILY #30 capsule.dr Discontinued Sucralfate [Carafate] 1 gm PO BID #30 tablet Discharge Medication List Aspirin EC [Ecotrin Low Dose] 81 mg PO DAILY 06/02/17 [History] Atorvastatin Calcium [Lipitor] 10 mg PO HS 06/02/17 [History] Carvedilol [Coreg] 25 mg PO BID@0730,2100 06/02/17 [History] Losartan Potassium 100 mg PO DAILY 06/02/17 [History] Multivitamins, Thera [Multivitamin (formulary)] 1 tab PO DAILY 06/02/17 [History ] Omeprazole [PriLOSEC] 40 mg PO DAILY #30 capsule. 06/02/17 [Rx] ALPRAZolam [Xanax] 0.5 mg PO TID PRN #45 tablet 06/08/17 [Rx] Furosemide [Lasix] 20 mg PO DAILY #30 tab 06/08/17 [Rx] HYDROcodone/APAP 10-325MG [[place] 10-325] 1 each PO Q4HR PRN #21 tab 06/08/17 [Rx ] Potassium Chloride ER [K-Dur 20] 20 meq PO DAILY #30 tab 06/08/17 [Rx] Follow up Appointment(s)/Referral(s): Nonstaff,Physician [Primary Care Provider] - 1-2 days Patient Instructions/Handouts: Heart Failure (ED) Activity/Diet/Wound Care/Special Instructions: Cardiac diet Activity as tolerated Follow-up with you PCP Dr. 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
== END 2017-06-08 11:04 | disposition home or self-care (01) | DRG 292 ==
LOC: EC 23:24 → 6SEL 06-04 01:59
PROVIDERS: ADMIT Internal Medicine; ATTEND Internal Medicine
PROC: 0DB78ZX Excision of Stomach, Pylorus, Via Natural or Artificial Opening Endoscopic, Diagnostic (ICD-10-PCS; 2017-06-07)
PROC: 0DB58ZX Excision of Esophagus, Via Natural or Artificial Opening Endoscopic, Diagnostic (ICD-10-PCS; 2017-06-07)
PROC: 0DB98ZX Excision of Duodenum, Via Natural or Artificial Opening Endoscopic, Diagnostic (ICD-10-PCS; principal; 2017-06-07 08:00)
DX: I50.43 Acute on chronic combined systolic (congestive) and diastolic (congestive) heart failure (principal); I42.8 Other cardiomyopathies; I27.2 Other secondary pulmonary hypertension; E87.5 Hyperkalemia; K76.0 Fatty (change of) liver, not elsewhere classified; E87.6 Hypokalemia; E66.9 Obesity, unspecified; K21.9 Gastro-esophageal reflux disease without esophagitis; K59.00 Constipation, unspecified; F41.9 Anxiety disorder, unspecified; I25.10 Atherosclerotic heart disease of native coronary artery without angina pectoris; R16.0 Hepatomegaly, not elsewhere classified; K76.89 Other specified diseases of liver; K44.9 Diaphragmatic hernia without obstruction or gangrene; E78.5 Hyperlipidemia, unspecified; G47.33 Obstructive sleep apnea (adult) (pediatric); K42.9 Umbilical hernia without obstruction or gangrene; K29.60 Other gastritis without bleeding; K57.90 Diverticulosis of intestine, part unspecified, without perforation or abscess without bleeding; I25.2 Old myocardial infarction; Z87.828 Personal history of other (healed) physical injury and trauma; Z79.899 Other long term (current) drug therapy; Z79.82 Long term (current) use of aspirin; Z95.810 Presence of automatic (implantable) cardiac defibrillator; Z90.49 Acquired absence of other specified parts of digestive tract
CPT/HCPCS: 36415; 43239; 71020; 71260; 74000; 74177; 76705; 80048; 80053; 80061; 80074; 81003; 82105; 82150; 82550; 82553; 83605; 83690; 83735; 83880; 84132; 84484; 85025; 85027; 85610; 85730; 88305; 88342; 93005; 93306; 96374; 96375; 99285